=== PATIENT | female | born 1950 | race American Indian/Alaskan Native ===

== ENCOUNTER 2016-08-17 12:25 | Emergency (ER) | payer MEDICARE ==
[2016-08-17 13:12] LABS: Basophils % (Auto) 0.7 % (0.0-1.8); Eosinophils % (Auto) 2.1 % (0.0-4.3); Hematocrit 41.3 % (30.3-42.9); Hemoglobin 13.5 gm/dl (10.1-14.3); Mean Corpuscular HGB Conc 33 % (30-34); Mean Corpuscular Hemoglobin 29 pg (28-32); Mean Corpuscular Volume 89 fl (79-97); Platelet Count 149 K/mm3 (140-440); Red Blood Count 4.62 M/mm3 (3.65-5.03); Red Cell Distribution Width 18.1 % (13.2-15.2); White Blood Count 5.6 K/mm3 (4.5-11.0)
[2016-08-17 13:29] LABS: Anion Gap 20 mmol/L; BUN/Creatinine Ratio 25.71; Blood Urea Nitrogen 18 mg/dL (7-17); Calcium 9.3 mg/dL (8.4-10.2); Carbon Dioxide 25 mmol/L (22-30); Chloride 98.3 mmol/L (98-107); Glucose 120 mg/dL (65-100); Potassium 4.5 mmol/L (3.6-5.0); Sodium 139 mmol/L (137-145)
--- NOTE | 2016-08-17 14:42 | XRay Report ---
CHEST 2 VIEWS INDICATION: Shortness of breath. COMPARISON: 01/05/2016 FINDINGS: PA and lateral chest radiographs demonstrate stable cardiomediastinal silhouette, slight aortic knob calcifications, possible pulmonary arterial hypertension and mild bilateral mid to lower lung zone scarring. Mildly hyperexpanded lungs without pleural effusions or CHF. Stable bones. Lumbar fusion hardware posteriorly barely included. CONCLUSION: COPD without acute chest process or significant interval change, as described. Thank you for the opportunity to participate in this patient's care.
[2016-08-17] MEDS ORDERED: ATROVENT IH ONE (22:10)
[2016-08-17] MEDS ORDERED: PROVENTIL IH ONE (22:10)
[2016-08-17] MEDS ORDERED: TORADOL IV ONE (22:10)
[2016-08-17] MEDS ORDERED: NACL 0.9% 500 ML 500 ML IV ONE (22:10)
--- NOTE | 2016-08-17 22:11 | Emergency Department Report ---
ED General Adult HPI - General Chief complaint: Dyspnea/Respdistress Stated complaint: CHEST TIGHT/SOB/N/V Time Seen by Provider: 08/17/16 21:55 Source: patient, RN notes reviewed Mode of arrival: Wheelchair Limitations: No Limitations - History of Present Illness Initial comments: This is a 65-year-old female, previously unknown to me. Has a past medical history of COPD, hypertension, chronic back pain, narcotic dependency, rheumatoid arthritis. Patient presents to the ER complaining of cough, congestion, wheezing, shortness of breath, mucous production. Reports that she was diagnosed with pneumonia approximately 1 month ago. To me she denies chest pain. She reports her symptoms are qualitatively similar to prior episodes of COPD. There is no posterior lower extremity pain or swelling. No recent trips greater than 4 hours. No recent hospital admissions. Patient also reports that she wants to go to outpatient detox for her narcotic habits. She is not homicidal. She is not suicidal. -: Gradual Severity scale (0 -10): 8 Consistency: intermittent Improves with: rest Worsens with: movement Associated Symptoms: cough, shortness of breath - Related Data Home Medications Medication Instructions Recorded Confirmed Last Taken amLODIPine [Norvasc] 10 mg PO DAILY 01/28/14 01/05/16 1 Day Ago 10 Nebivolol HCl [Bystolic] 10 mg PO QDAY 11/25/15 01/05/16 1 Day Ago 10 oxyCODONE [Roxicodone] 30 mg PO Q6HR PRN 11/25/15 01/05/16 1 Day Ago 30 Meloxicam [Mobic] 10 mg PO DAILY 01/05/16 01/05/16 1 Day Ago 10 buPROPion [Wellbutrin] 100 mg PO BID 01/05/16 01/05/16 1 Day Ago 100 hydrOXYzine PAMOATE [Vistaril] 50 mg PO Q8HR 01/05/16 01/05/16 1 Day Ago 50 Previous Rx's Medication Instructions Recorded Last Taken Type Azithromycin [Zithromax TAB] 500 mg PO QDAY #3 tablet 01/05/16 Unknown Rx Prednisone [predniSONE 10 mg 10 mg PO .TAPER #1 tab.ds.pk 01/05/16 Unknown Rx (6-Day Pack, 21 Tabs)] Albuterol Sulfate [Proair 90 mcg IH Q4HR PRN #2 aer.pow.ba 08/18/16 Unknown Rx Respiclick] Azithromycin [Zithromax TAB] 250 mg PO QDAY #4 tablet 08/18/16 Unknown Rx Benzonatate [Tessalon Perles] 100 mg PO Q8HR PRN #30 capsule 08/18/16 Unknown Rx Ipratropium [place] [Atrovent Hfa] 12.9 gm IH Q4HR #2 hfa.aer.ad 08/18/16 Unknown Rx predniSONE [Deltasone] 40 mg PO QDAY #8 tab 08/18/16 Unknown Rx Allergies Allergy/AdvReac Type Severity Reaction Status Date / Time No Known Allergies Allergy Verified 08/17/16 12:42 ED Review of Systems ROS: Stated complaint: CHEST TIGHT/SOB/N/V Other details as noted in HPI Constitutional: malaise Eyes: denies: vision change Respiratory: shortness of breath, wheezing Cardiovascular: dyspnea on exertion. denies: chest pain Musculoskeletal: back pain, arthralgia, myalgia, other (patient complains of chronic arthralgias, chronic back pain.) Skin: denies: rash, lesions Neurological: denies: headache, weakness, paresthesias Psychiatric: denies: anxiety, depression, homicidal thoughts, suicidal thoughts ED Past Medical Hx - Past Medical History Hx Hypertension: Yes Hx Congestive Heart Failure: Yes Hx Arthritis: Yes (rheumtoid) Hx COPD: Yes Additional medical history: chronic back pain - Surgical History Additional Surgical History: hernia repair and lower back - Social History Smoking Status: Former Smoker Substance Use Type: Prescribed - Medications Home Medications: Home Medications Medication Instructions Recorded Confirmed Last Taken Type amLODIPine [Norvasc] 10 mg PO DAILY 01/28/14 01/05/16 1 Day Ago History 10 Nebivolol HCl [Bystolic] 10 mg PO QDAY 11/25/15 01/05/16 1 Day Ago History 10 oxyCODONE [Roxicodone] 30 mg PO Q6HR PRN 11/25/15 01/05/16 1 Day Ago History 30 Azithromycin [Zithromax TAB] 500 mg PO QDAY #3 tablet 01/05/16 Unknown Rx Meloxicam [Mobic] 10 mg PO DAILY 01/05/16 01/05/16 1 Day Ago History 10 Prednisone [predniSONE 10 mg 10 mg PO .TAPER #1 tab.ds.pk 01/05/16 Unknown Rx (6-Day Pack, 21 Tabs)] buPROPion [Wellbutrin] 100 mg PO BID 01/05/16 01/05/16 1 Day Ago History 100 hydrOXYzine PAMOATE [Vistaril] 50 mg PO Q8HR 01/05/16 01/05/16 1 Day Ago History 50 Albuterol Sulfate [Proair 90 mcg IH Q4HR PRN #2 aer.pow.ba 08/18/16 Unknown Rx Respiclick] Azithromycin [Zithromax TAB] 250 mg PO QDAY #4 tablet 08/18/16 Unknown Rx Benzonatate [Tessalon Perles] 100 mg PO Q8HR PRN #30 capsule 08/18/16 Unknown Rx Ipratropium [place] [Atrovent Hfa] 12.9 gm IH Q4HR #2 hfa.aer.ad 08/18/16 Unknown Rx predniSONE [Deltasone] 40 mg PO QDAY #8 tab 08/18/16 Unknown Rx ED Physical Exam - General Limitations: No Limitations General appearance: alert, in no apparent distress - Head Head exam: Present: atraumatic, normocephalic - Eye Eye exam: Present: normal appearance, EOMI. Absent: nystagmus - ENT ENT exam: Present: normal exam, normal orophraynx, mucous membranes moist, normal external ear exam - Neck Neck exam: Present: normal inspection, full ROM. Absent: tenderness, meningismus - Respiratory Respiratory exam: Present: wheezes, rales - Cardiovascular Cardiovascular Exam: Present: regular rate, normal rhythm, normal heart sounds. Absent: bradycardia, tachycardia, irregular rhythm, systolic murmur, diastolic murmur, rubs, gallop - GI/Abdominal GI/Abdominal exam: Present: soft, normal bowel sounds. Absent: distended, tenderness, guarding, rebound, rigid, pulsatile mass - Extremities Exam Extremities exam: Present: normal inspection, full ROM, normal capillary refill. Absent: tenderness, pedal edema, joint swelling, calf tenderness - Back Exam Back exam: Present: normal inspection, full ROM, paraspinal tenderness. Absent : tenderness, CVA tenderness (R), CVA tenderness (L), muscle spasm - Neurological Exam Neurological exam: Present: alert, oriented X3, normal gait, other (Extraocular movements intact. Tongue midline. No facial droop. Facial sensation intact to light touch in the V1, V2, V3 distribution bilaterally. 5 and 5 strength in 4 extremities.. Sensation is intact to light touch in 4 extremities.). Absent : motor sensory deficit - Psychiatric Psychiatric exam: Present: normal affect, normal mood - Skin Skin exam: Present: warm, dry, intact, normal color. Absent: rash ED Course Vital Signs 08/17/16 08/17/16 08/17/16 12:35 20:05 23:31 Temperature 98.4 F 98.4 F Pulse Rate 85 72 Pulse Rate [ Bilateral Throughout] Respiratory 20 18 18 Rate Respiratory Rate [Bilateral Throughout] Blood Pressure 144/84 154/80 O2 Sat by Pulse 100 96 Oximetry 08/17/16 23:58 Temperature Pulse Rate Pulse Rate [ 80 Bilateral Throughout] Respiratory Rate Respiratory 20 Rate [Bilateral Throughout] Blood Pressure O2 Sat by Pulse Oximetry - Reevaluation(s) Reevaluation #1: 08/18/16 00:07 Differential diagnosis: COPD exacerbation, bronchitis, pneumonia, chronic back pain, narcotic dependence Assessment and plan: 65-year-old female with probable bronchitis and COPD exacerbation which I think is mild. The patient is able to ambulate without significant desaturation. To me she denies chest pain. No pulmonary embolus or DVT risk factors, low risk by well's criteria. Symptoms have been present for the past few days. Therefore, as per the [employer] clinical policy, myocardial infarction may be excluded with 1 set of cardiac enzymes if symptoms have been present for greater than 8 hours. Patient did endorse pelvic pain and lower back pain after mechanical fall, however she is able to ambulate with a steady gait. Plain films do not demonstrate fracture or dislocation. Towards the end of her assessment, patient did request to go to [facility] which were narcotic detox. She is not homicidal. She is not suicidal. She does not require 1013 at this time. She will be discharged with albuterol, Atrovent, steroids, instructions to closely follow up with outpatient primary care doctor. The patient is able to ambulate on supplemental oxygen which she takes chronically, without significant clinical decompensation. Reevaluation #2: 08/18/16 00:35 The patient was able to ambulate with her typical quantity of supplemental oxygen without significant difficulty. Pulse ox stayed normal 90s, consistent with chronic COPD. She does not appear to be significantly distressed. ED Medical Decision Making - Lab Data Result diagrams: 08/17/16 12:57 08/17/16 12:57 Vital Signs 08/17/16 08/17/16 08/17/16 12:35 20:05 23:31 Temperature 98.4 F 98.4 F Pulse Rate 85 72 Pulse Rate [ Bilateral Throughout] Respiratory 20 18 18 Rate Respiratory Rate [Bilateral Throughout] Blood Pressure 144/84 154/80 O2 Sat by Pulse 100 96 Oximetry 08/17/16 23:58 Temperature Pulse Rate Pulse Rate [ 80 Bilateral Throughout] Respiratory Rate Respiratory 20 Rate [Bilateral Throughout] Blood Pressure O2 Sat by Pulse Oximetry Lab Results 08/17/16 08/17/16 Range/Units 12:57 12:57 WBC 5.6 (4.5-11.0) K/mm3 RBC 4.62 (3.65-5.03) M/mm3 Hgb 13.5 (10.1-14.3) gm/dl Hct 41.3 (30.3-42.9) % MCV 89 (79-97) fl MCH 29 (28-32) pg MCHC 33 (30-34) % RDW 18.1 H (13.2-15.2) % Plt Count 149 (140-440) K/mm3 Lymph % (Auto) 25.2 (13.4-35.0) % [place] % (Auto) 5.3 (0.0-7.3) % Eos % (Auto) 2.1 (0.0-4.3) % Baso % (Auto) 0.7 (0.0-1.8) % Lymph # 1.4 (1.2-5.4) K/mm3 [place] # 0.3 (0.0-0.8) K/mm3 Eos # 0.1 (0.0-0.4) K/mm3 Baso # 0.0 (0.0-0.1) K/mm3 Seg Neutrophils % 66.7 (40.0-70.0) % Seg Neutrophils # 3.7 (1.8-7.7) K/mm3 Sodium 139 (137-145) mmol/L Potassium 4.5 (3.6-5.0) mmol/L Chloride 98.3 (98-107) mmol/L Carbon Dioxide 25 (22-30) mmol/L Anion Gap 20 mmol/L BUN 18 H (7-17) mg/dL Creatinine 0.7 (0.7-1.2) mg/dL Estimated GFR > 60 ml/min BUN/Creatinine Ratio 25.71 % Glucose 120 H (65-100) mg/dL Calcium 9.3 (8.4-10.2) mg/dL Troponin T < 0.010 (0.00-0.029) ng/mL - EKG Data 08/18/16 00:10 Normal sinus, 78 bpm, amylase axis, normal intervals, low voltage EKG, not morphologically consistent with STEMI, appears unchanged when compared to prior EKG from 11/30/2012. - Radiology Data Radiology results: report reviewed, image reviewed X-ray chest negative for acute disease Critical care attestation.: If time is entered above; I have spent that time in minutes in the direct care of this critically ill patient, excluding procedure time. ED Disposition Clinical Impression: COPD exacerbation Disposition: DISCHARGED TO HOME OR SELFCARE Is pt being admited?: No Does the pt Need Aspirin: No Condition: Stable Instructions: Chronic Obstructive Pulmonary Disease (ED) Additional Instructions: The medication as directed. Take the breathing treatments as directed every 4 hours for the next 5 days. Take antibiotics as directed. Follow up with her primary care doctor for a repeat checkup within the next 2 days. Return to the ER right away with new pain, worsened pain, migration of pain, fevers or chills , intractable nausea or vomiting, inability to tolerate liquid feeds. At this point in time, I do not detect any immediate medical contraindication to detox therapy as an outpatient if you desire. Prescriptions: Albuterol Sulfate [Proair Respiclick] 90 mcg IH Q4HR PRN #2 aer.pow.ba PRN Reason: Wheezing Azithromycin [Zithromax TAB] 250 mg PO QDAY #4 tablet Benzonatate [Tessalon Perles] 100 mg PO Q8HR PRN #30 capsule PRN Reason: Cough Ipratropium [place] [Atrovent Hfa] 12.9 gm IH Q4HR #2 hfa.aer.ad predniSONE [Deltasone] 40 mg PO QDAY #8 tab Referrals: LUCIE ORDAZ MD [Primary Care Provider] - 3-5 Days
[2016-08-18] MEDS ORDERED: ZITHROMAX PO ONE (00:11)
[2016-08-18 01:30] VITALS: BP 161/90
--- NOTE | 2016-08-18 09:32 | XRay Report ---
AP PELVIS: HISTORY: Hip pain. FINDINGS: Bone mineralization is normal. There is no evidence for fracture, dislocation or bone lesion. No significant degenerative changes at the hips. There has been previous lumbosacral fusion down to the level of S1 which is partially imaged. There is no obvious abnormality. Mild osteoarthritic changes are noted at the SI joints. IMPRESSION: Surgical changes in the lumbar spine. Degenerative changes in the SI joints.
== END 2016-08-18 02:53 | disposition home or self-care (01) ==
LOC: ED 12:25
DX: J44.1 Chronic obstructive pulmonary disease with (acute) exacerbation (principal); I10 Essential (primary) hypertension; I50.9 Heart failure, unspecified; M19.90 Unspecified osteoarthritis, unspecified site; G89.29 Other chronic pain; Z87.891 Personal history of nicotine dependence
CPT/HCPCS: 36415; 71020; 72170; 80048; 84484; 85025; 93005; 93010; 94640; 96361; 96374; 96375; 99284; J1885; J2930; J7040

== ENCOUNTER 2017-11-22 16:26 | Emergency (ER) | payer MEDICARE ==
[2017-11-22 17:50] LABS: Basophils % (Auto) 0.7 % (0.0-1.8); Eosinophils # (Auto) 0.1 K/mm3 (0.0-0.4); Eosinophils % (Auto) 2.8 % (0.0-4.3); Hematocrit 38.7 % (30.3-42.9); Hemoglobin 12.2 gm/dl (10.1-14.3); Lymphocytes # (Auto) 1.2 K/mm3 (1.2-5.4); Lymphocytes % (Auto) 23.3 % (13.4-35.0); Mean Corpuscular HGB Conc 32 % (30-34); Mean Corpuscular Hemoglobin 28 pg (28-32); Mean Corpuscular Volume 90 fl (79-97); Monocytes # (Auto) 0.4 K/mm3 (0.0-0.8); Monocytes % (Auto) 6.8 % (0.0-7.3); Platelet Count 178 K/mm3 (140-440); Red Cell Distribution Width 15.7 % (13.2-15.2)
[2017-11-22 18:12] LABS: BUN/Creatinine Ratio 16; Blood Urea Nitrogen 11 mg/dL (7-17); Calcium 9.3 mg/dL (8.4-10.2); Hemolysis Index 33
--- NOTE | 2017-11-22 18:22 | XRay Report ---
FINAL REPORT PROCEDURE: Chest. TECHNIQUE: Portable AP view. HISTORY: Shortness of breath. COMPARISON: No prior studies are available for comparison. FINDINGS: The heart size is normal. There is mild tortuosity and calcification in the thoracic aorta. The lungs are clear and well expanded. There are no pleural effusions. The soft tissues are unremarkable. There is mild osteoarthritis involving both shoulder joints. IMPRESSION: No evidence of acute disease.
--- NOTE | 2017-11-22 19:42 | Emergency Department Report ---
ED Shortness of Breath HPI - General Chief Complaint: Dyspnea/Respdistress Stated Complaint: JOLENE/PNEUMONIA Time Seen by Provider: 11/22/17 17:43 Source: patient, EMS Mode of arrival: Stretcher Limitations: No Limitations - History of Present Illness Initial Comments: Decision 67-year-old female who states she's had difficulty in breathing for approximately 6 days. Patient was seen at [facility] on and diagnosed with pneumonia and given a Z-Ken. Patient states she does not feel much better. She is continued to have a cough and congestion. Her cough is wet sounding but nonproductive. Patient states she's had no fever nausea vomiting abdominal pain this time. Patient states she took the Z-Ken is prescribed. No other medicines were given for the patient. Patient does have a history of COPD and is on 2 L of oxygen at baseline. MD Complaint: shortness of breath, cough - Related Data Home Medications Medication Instructions Recorded Confirmed Last Taken amLODIPine [Norvasc] 10 mg PO DAILY 01/28/14 11/27/16 1 Day Ago ~01/04/16 10 Nebivolol HCl [Bystolic] 15 mg PO QDAY 11/25/15 11/27/16 1 Day Ago ~01/04/16 10 ALBUTEROL Inhaler [ProAir HFA 2 puff PO PRN 11/27/16 11/27/16 Unknown Inhaler] Buprenorphine HCl/Naloxone HCl 1 tab PO QDAY 11/27/16 11/27/16 Unknown [Zubsolv 1.4-0.36 mg Tablet Sl] LORazepam [Ativan] 1 mg PO TID 11/27/16 11/27/16 Unknown Quetiapine Fumarate [Seroquel] 100 mg PO QHS 11/27/16 11/27/16 Unknown diphenhydrAMINE [Benadryl CAP] 50 mg PO QHS PRN 11/27/16 11/27/16 Unknown Previous Rx's Medication Instructions Recorded Last Taken Type Aspirin EC [Aspirin Enteric Coated 81 mg PO QDAY #30 tablet 11/30/16 Unknown Rx TAB] AtorvaSTATin [Lipitor] 40 mg PO QHS #30 tablet 11/30/16 Unknown Rx Budesoni/Formoterol 80-4.5(Nf) 2 puff IH BID 30 Days inha 11/30/16 Unknown Rx [Symbicort 80-4.5 (Nf)] Metoprolol Xl [Metoprolol 100 mg PO QDAY #30 tablet 12/03/16 Unknown Rx SUCCINATE ER TAB] Ondansetron [Zofran TAB] 4 mg PO Q8HR PRN #30 tablet 12/03/16 Unknown Rx amLODIPine [Norvasc] 10 mg PO DAILY #30 tablet 12/03/16 Unknown Rx predniSONE [Deltasone] 50 mg PO QDAY #1 tab 12/03/16 Unknown Rx ALBUTEROL Inhaler [ProAir HFA 2 puff IH QID PRN #1 inhalation 11/22/17 Unknown Rx Inhaler] Doxycycline [Vibramycin CAP] 100 mg PO Q12HR #14 capsule 11/22/17 Unknown Rx HYDROcodone/APAP 5-325 [[place] 1 each PO Q4HR PRN #12 tablet 11/22/17 Unknown Rx 5/325] predniSONE [Deltasone] 20 mg PO QDAY #5 tab 11/22/17 Unknown Rx Allergies Allergy/AdvReac Type Severity Reaction Status Date / Time No Known Allergies Allergy Verified 08/17/16 12:42 ED Review of Systems ROS: Stated complaint: JOLENE/PNEUMONIA Other details as noted in HPI Comment: All other systems reviewed and negative ED Past Medical Hx - Past Medical History Hx Hypertension: Yes Hx Congestive Heart Failure: Yes Hx Arthritis: Yes (rheumatoid) Hx COPD: Yes Additional medical history: chronic back pain - Surgical History Additional Surgical History: hernia repair and lower back - Social History Smoking Status: Former Smoker - Medications Home Medications: Home Medications Medication Instructions Recorded Confirmed Last Taken Type amLODIPine [Norvasc] 10 mg PO DAILY 01/28/14 11/27/16 1 Day Ago History ~01/04/16 10 Nebivolol HCl [Bystolic] 15 mg PO QDAY 11/25/15 11/27/16 1 Day Ago History ~01/04/16 10 ALBUTEROL Inhaler [ProAir HFA 2 puff PO PRN 11/27/16 11/27/16 Unknown History Inhaler] Buprenorphine HCl/Naloxone HCl 1 tab PO QDAY 11/27/16 11/27/16 Unknown History [Zubsolv 1.4-0.36 mg Tablet Sl] LORazepam [Ativan] 1 mg PO TID 11/27/16 11/27/16 Unknown History Quetiapine Fumarate [Seroquel] 100 mg PO QHS 11/27/16 11/27/16 Unknown History diphenhydrAMINE [Benadryl CAP] 50 mg PO QHS PRN 11/27/16 11/27/16 Unknown History Aspirin EC [Aspirin Enteric Coated 81 mg PO QDAY #30 tablet 11/30/16 Unknown Rx TAB] AtorvaSTATin [Lipitor] 40 mg PO QHS #30 tablet 11/30/16 Unknown Rx Budesoni/Formoterol 80-4.5(Nf) 2 puff IH BID 30 Days inha 11/30/16 Unknown Rx [Symbicort 80-4.5 (Nf)] Metoprolol Xl [Metoprolol 100 mg PO QDAY #30 tablet 12/03/16 Unknown Rx SUCCINATE ER TAB] Ondansetron [Zofran TAB] 4 mg PO Q8HR PRN #30 tablet 12/03/16 Unknown Rx amLODIPine [Norvasc] 10 mg PO DAILY #30 tablet 12/03/16 Unknown Rx predniSONE [Deltasone] 50 mg PO QDAY #1 tab 12/03/16 Unknown Rx ALBUTEROL Inhaler [ProAir HFA 2 puff IH QID PRN #1 inhalation 11/22/17 Unknown Rx Inhaler] Doxycycline [Vibramycin CAP] 100 mg PO Q12HR #14 capsule 11/22/17 Unknown Rx HYDROcodone/APAP 5-325 [[place] 1 each PO Q4HR PRN #12 tablet 11/22/17 Unknown Rx 5/325] predniSONE [Deltasone] 20 mg PO QDAY #5 tab 11/22/17 Unknown Rx ED Physical Exam - General Limitations: No Limitations General appearance: alert, in no apparent distress - Head Head exam: Present: atraumatic, normocephalic - Eye Eye exam: Present: normal appearance - ENT ENT exam: Present: mucous membranes moist - Neck Neck exam: Present: normal inspection - Respiratory Respiratory exam: Present: normal lung sounds bilaterally. Absent: respiratory distress, wheezes, rales, rhonchi, stridor - Cardiovascular Cardiovascular Exam: Present: regular rate, normal rhythm. Absent: systolic murmur, diastolic murmur, rubs, gallop - GI/Abdominal GI/Abdominal exam: Present: soft, normal bowel sounds. Absent: distended, tenderness, guarding, rebound - Extremities Exam Extremities exam: Present: normal inspection - Back Exam Back exam: Present: normal inspection - Neurological Exam Neurological exam: Present: alert, oriented X3 - Psychiatric Psychiatric exam: Present: normal affect, normal mood - Skin Skin exam: Present: warm, dry, intact, normal color. Absent: rash ED Course Vital Signs 11/22/17 11/22/17 16:54 18:10 Temperature 98.5 F Pulse Rate 92 H Respiratory 20 Rate Blood Pressure 130/89 O2 Sat by Pulse 95 95 Oximetry ED Medical Decision Making - Lab Data Result diagrams: 11/22/17 17:31 11/22/17 17:31 - EKG Data -: EKG Interpreted by Me - EKG Data Interpretation: other (EKG shows sinus rhythm at a rate of 83 and normal axis normal and will occasional PVCs but no ST segment elevation or depression. Interpretation at 1715) - Radiology Data Chest x-ray shows no acute process. - Medical Decision Making Despite not feeling well patient's x-ray laboratory studies all within normal limits. Patient is 99% on 2 L. Patient states that occasionally she has wear 3 L at home at baseline. Patient is asking for admission however at this time patient does not meet criteria for admission. Patient be discharged home. I will extend the patient's antibiotic course additional 5 days with Doxy and traced the patient on something for pain and prednisone. Critical care attestation.: If time is entered above; I have spent that time in minutes in the direct care of this critically ill patient, excluding procedure time. ED Disposition Clinical Impression: Acute bronchitis Disposition: DC-01 TO HOME OR SELFCARE Is pt being admited?: No Does the pt Need Aspirin: No Condition: Stable Instructions: Acute Bronchitis (ED) Referrals: LUCIE ORDAZ MD [Primary Care Provider] - 3-5 Days
[2017-11-22 21:56] VITALS: BP 136/82
== END 2017-11-22 21:57 | disposition home or self-care (01) ==
LOC: ED 16:26
DX: J20.9 Acute bronchitis, unspecified (principal); I11.0 Hypertensive heart disease with heart failure; I50.9 Heart failure, unspecified; M19.90 Unspecified osteoarthritis, unspecified site; J44.9 Chronic obstructive pulmonary disease, unspecified; Z87.891 Personal history of nicotine dependence; Z79.82 Long term (current) use of aspirin
CPT/HCPCS: 36415; 71045; 80048; 84484; 85025; 93005; 93010; 99284

== ENCOUNTER 2017-11-24 12:06 | Inpatient (IN) | payer MEDICARE ==
[2017-11-24 13:25] LABS: Basophils % (Auto) 0.3 % (0.0-1.8); Eosinophils # (Auto) 0.1 K/mm3 (0.0-0.4); Hematocrit 40.1 % (30.3-42.9); Hemoglobin 13.6 gm/dl (10.1-14.3); Lymphocytes # (Auto) 0.9 K/mm3 (1.2-5.4); Lymphocytes % (Auto) 14.5 % (13.4-35.0); Mean Corpuscular HGB Conc 34 % (30-34); Mean Corpuscular Hemoglobin 30 pg (28-32); Mean Corpuscular Volume 88 fl (79-97); Monocytes # (Auto) 0.3 K/mm3 (0.0-0.8); Monocytes % (Auto) 4.2 % (0.0-7.3); Platelet Count 183 K/mm3 (140-440); Red Blood Count 4.58 M/mm3 (3.65-5.03); Red Cell Distribution Width 15.5 % (13.2-15.2)
[2017-11-24 13:52] LABS: BUN/Creatinine Ratio 13; Blood Urea Nitrogen 9 mg/dL (7-17); Calcium 9.9 mg/dL (8.4-10.2); Hemolysis Index 7
[2017-11-24] MEDS ORDERED: ATIVAN PO ONE (17:13)
[2017-11-24] MEDS ORDERED: DUONEB *Not for PRN Use IH ONE (18:22)
--- NOTE | 2017-11-24 18:22 | Emergency Department Report ---
ED Shortness of Breath HPI - General Chief Complaint: Psych Stated Complaint: SUICIDAL THOUGHTS/DIFF BREATHING Time Seen by Provider: 11/24/17 16:43 Source: patient, EMS Mode of arrival: Wheelchair Limitations: Physical Limitation - History of Present Illness Initial Comments: 67-year-old female the past medical history of CHF, COPD (2-3 L) , hypertension , anxiety and chronic back pain presents to the hospital complaining of continued shortness of breath and coughing. Patient states she is concerned that she has pneumonia. She finished [facility] last 5 days ago. She presented here on the requesting admission because she didn't feel any better. She was definitely sent home with no signs of pneumonia or respiratory systems are stable. Patient now returns stating that she has continued cough productive of green sputum. The chest pain associated with coughing. Palpitations and anxiety as well as shortness of breath. Patient has been out of her Ativan 1 mg 3 times a day 3 days. She has been on this dose for at least 1 year. When questioned about her living status patient becomes tearful stating that she lives alone at her son checks up on her. She has some concern about her son selling some of her belongings without her permission. Patient states she is now suicidal without plan. Stating she just wants to give up. Reports that she was admitted to a psychiatric hospital for treatment approximately 2 years ago - Related Data Home Medications Medication Instructions Recorded Confirmed Last Taken amLODIPine [Norvasc] 10 mg PO DAILY 01/28/14 11/27/16 1 Day Ago ~01/04/16 10 Nebivolol HCl [Bystolic] 15 mg PO QDAY 11/25/15 11/27/16 1 Day Ago ~01/04/16 10 ALBUTEROL Inhaler [ProAir HFA 2 puff PO PRN 11/27/16 11/27/16 Unknown Inhaler] Buprenorphine HCl/Naloxone HCl 1 tab PO QDAY 11/27/16 11/27/16 Unknown [Zubsolv 1.4-0.36 mg Tablet Sl] LORazepam [Ativan] 1 mg PO TID 11/27/16 11/27/16 Unknown Quetiapine Fumarate [Seroquel] 100 mg PO QHS 11/27/16 11/27/16 Unknown diphenhydrAMINE [Benadryl CAP] 50 mg PO QHS PRN 11/27/16 11/27/16 Unknown Previous Rx's Medication Instructions Recorded Last Taken Type Aspirin EC [Aspirin Enteric Coated 81 mg PO QDAY #30 tablet 11/30/16 Unknown Rx TAB] AtorvaSTATin [Lipitor] 40 mg PO QHS #30 tablet 11/30/16 Unknown Rx Budesoni/Formoterol 80-4.5(Nf) 2 puff IH BID 30 Days inha 11/30/16 Unknown Rx [Symbicort 80-4.5 (Nf)] Metoprolol Xl [Metoprolol 100 mg PO QDAY #30 tablet 12/03/16 Unknown Rx SUCCINATE ER TAB] Ondansetron [Zofran TAB] 4 mg PO Q8HR PRN #30 tablet 12/03/16 Unknown Rx amLODIPine [Norvasc] 10 mg PO DAILY #30 tablet 12/03/16 Unknown Rx predniSONE [Deltasone] 50 mg PO QDAY #1 tab 12/03/16 Unknown Rx ALBUTEROL Inhaler [ProAir HFA 2 puff IH QID PRN #1 inhalation 11/22/17 Unknown Rx Inhaler] Doxycycline [Vibramycin CAP] 100 mg PO Q12HR #14 capsule 11/22/17 Unknown Rx HYDROcodone/APAP 5-325 [[place] 1 each PO Q4HR PRN #12 tablet 11/22/17 Unknown Rx 5/325] predniSONE [Deltasone] 20 mg PO QDAY #5 tab 11/22/17 Unknown Rx Allergies Allergy/AdvReac Type Severity Reaction Status Date / Time No Known Allergies Allergy Verified 08/17/16 12:42 ED Review of Systems ROS: Stated complaint: SUICIDAL THOUGHTS/DIFF BREATHING Other details as noted in HPI Comment: All other systems reviewed and negative ED Past Medical Hx - Past Medical History Previous Medical History?: Yes Hx Hypertension: Yes Hx Congestive Heart Failure: Yes Hx Arthritis: Yes (rheumatoid) Hx COPD: Yes Additional medical history: chronic back pain - Surgical History Past Surgical History?: Yes Additional Surgical History: hernia repair and lower back - Social History Smoking Status: Former Smoker Substance Use Type: Prescribed - Medications Home Medications: Home Medications Medication Instructions Recorded Confirmed Last Taken Type amLODIPine [Norvasc] 10 mg PO DAILY 01/28/14 11/27/16 1 Day Ago History ~01/04/16 10 Nebivolol HCl [Bystolic] 15 mg PO QDAY 11/25/15 11/27/16 1 Day Ago History ~01/04/16 10 ALBUTEROL Inhaler [ProAir HFA 2 puff PO PRN 11/27/16 11/27/16 Unknown History Inhaler] Buprenorphine HCl/Naloxone HCl 1 tab PO QDAY 11/27/16 11/27/16 Unknown History [Zubsolv 1.4-0.36 mg Tablet Sl] LORazepam [Ativan] 1 mg PO TID 11/27/16 11/27/16 Unknown History Quetiapine Fumarate [Seroquel] 100 mg PO QHS 11/27/16 11/27/16 Unknown History diphenhydrAMINE [Benadryl CAP] 50 mg PO QHS PRN 11/27/16 11/27/16 Unknown History Aspirin EC [Aspirin Enteric Coated 81 mg PO QDAY #30 tablet 11/30/16 Unknown Rx TAB] AtorvaSTATin [Lipitor] 40 mg PO QHS #30 tablet 11/30/16 Unknown Rx Budesoni/Formoterol 80-4.5(Nf) 2 puff IH BID 30 Days inha 11/30/16 Unknown Rx [Symbicort 80-4.5 (Nf)] Metoprolol Xl [Metoprolol 100 mg PO QDAY #30 tablet 12/03/16 Unknown Rx SUCCINATE ER TAB] Ondansetron [Zofran TAB] 4 mg PO Q8HR PRN #30 tablet 12/03/16 Unknown Rx amLODIPine [Norvasc] 10 mg PO DAILY #30 tablet 12/03/16 Unknown Rx predniSONE [Deltasone] 50 mg PO QDAY #1 tab 12/03/16 Unknown Rx ALBUTEROL Inhaler [ProAir HFA 2 puff IH QID PRN #1 inhalation 11/22/17 Unknown Rx Inhaler] Doxycycline [Vibramycin CAP] 100 mg PO Q12HR #14 capsule 11/22/17 Unknown Rx HYDROcodone/APAP 5-325 [[place] 1 each PO Q4HR PRN #12 tablet 11/22/17 Unknown Rx 5/325] predniSONE [Deltasone] 20 mg PO QDAY #5 tab 11/22/17 Unknown Rx ED Physical Exam - General Limitations: Physical Limitation - Other Other exam information: General: No limitations, patient is alert in no acute distress Head exam: Atraumatic, normocephalic Eyes exam: Normal appearance ENT: Moist mucous membrane, normal oropharynx Neck exam: Normal inspection, full range of motion, no meningismus nontender Respiratory exam: Mild wheezing Cardiovascular: Normal rate and rhythm, normal heart sounds Abdomen: Soft, nondistended, and nontender, with normal bowel sounds, no rebound, or guarding Extremity: Full range of motion normal inspection no deformity Back: Normal Inspection, full range of motion, no tenderness Neurologic: Alert, oriented x3, cranial nerves intact, no motor or sensory deficit Psychiatric: tearful, anxious Skin: Warm, dry, intact ED Course Vital Signs 11/24/17 11/24/17 11/24/17 12:49 18:06 18:12 Temperature 98.7 F 98 F Pulse Rate 100 H 100 H Respiratory 18 16 18 Rate Blood Pressure 126/91 Blood Pressure 149/94 [Right] O2 Sat by Pulse 96 97 98 Oximetry ED Medical Decision Making - Lab Data Result diagrams: 11/24/17 13:10 11/24/17 13:10 Lab Results 11/24/17 11/24/17 11/24/17 Range/Units 13:10 13:10 13:10 WBC (4.5-11.0) K/mm3 RBC (3.65-5.03) M/mm3 Hgb (10.1-14.3) gm/dl Hct (30.3-42.9) % MCV (79-97) fl MCH (28-32) pg MCHC (30-34) % RDW (13.2-15.2) % Plt Count (140-440) K/mm3 Lymph % (Auto) (13.4-35.0) % [place] % (Auto) (0.0-7.3) % Eos % (Auto) (0.0-4.3) % Baso % (Auto) (0.0-1.8) % Lymph # (1.2-5.4) K/mm3 [place] # (0.0-0.8) K/mm3 Eos # (0.0-0.4) K/mm3 Baso # (0.0-0.1) K/mm3 Seg Neutrophils % (40.0-70.0) % Seg Neutrophils # (1.8-7.7) K/mm3 Sodium 146 H (137-145) mmol/L Potassium 3.6 (3.6-5.0) mmol/L Chloride 100.4 (98-107) mmol/L Carbon Dioxide 30 (22-30) mmol/L Anion Gap 19 mmol/L BUN 9 (7-17) mg/dL Creatinine 0.7 (0.7-1.2) mg/dL Estimated GFR > 60 ml/min BUN/Creatinine Ratio 13 % Glucose 127 H (65-100) mg/dL Calcium 9.9 (8.4-10.2) mg/dL Urine Color (Yellow) Urine Turbidity (Clear) Urine pH (5.0-7.0) Ur Specific [place] (1.003-1.030) Urine Protein (Negative) mg/dL Urine Glucose (UA) (Negative) mg/dL Urine Ketones (Negative) mg/dL Urine Blood (Negative) Urine Nitrite (Negative) Ur Reducing Substances Urine Bilirubin (Negative) Urine Ictotest Urine Urobilinogen (<2.0) mg/dL Ur Leukocyte Esterase (Negative) Urine WBC (Auto) (0.0-6.0) /HPF Urine RBC (Auto) (0.0-6.0) /HPF U Epithel Cells (Auto) (0-13.0) /HPF Urine Bacteria (Auto) (Negative) /HPF Hyaline Casts /LPF Urine Mucus /HPF Salicylates 1.1 L (2.8-20.0) mg/dL Urine Opiates Screen Urine Methadone Screen Acetaminophen < 5.0 L (10.0-30.0) ug/mL Ur Barbiturates Screen Ur Phencyclidine Scrn Ur Amphetamines Screen U Benzodiazepines Scrn Urine Cocaine Screen U Marijuana (THC) Screen Drugs of Abuse Note Plasma/Serum Alcohol (0-0.07) % 11/24/17 11/24/17 11/24/17 Range/Units 13:10 13:10 18:52 WBC 6.3 (4.5-11.0) K/mm3 RBC 4.58 (3.65-5.03) M/mm3 Hgb 13.6 (10.1-14.3) gm/dl Hct 40.1 (30.3-42.9) % MCV 88 (79-97) fl MCH 30 (28-32) pg MCHC 34 (30-34) % RDW 15.5 H (13.2-15.2) % Plt Count 183 (140-440) K/mm3 Lymph % (Auto) 14.5 (13.4-35.0) % [place] % (Auto) 4.2 (0.0-7.3) % Eos % (Auto) 1.0 (0.0-4.3) % Baso % (Auto) 0.3 (0.0-1.8) % Lymph # 0.9 L (1.2-5.4) K/mm3 [place] # 0.3 (0.0-0.8) K/mm3 Eos # 0.1 (0.0-0.4) K/mm3 Baso # 0.0 (0.0-0.1) K/mm3 Seg Neutrophils % 80.0 H (40.0-70.0) % Seg Neutrophils # 5.0 (1.8-7.7) K/mm3 Sodium (137-145) mmol/L Potassium (3.6-5.0) mmol/L Chloride (98-107) mmol/L Carbon Dioxide (22-30) mmol/L Anion Gap mmol/L BUN (7-17) mg/dL Creatinine (0.7-1.2) mg/dL Estimated GFR ml/min BUN/Creatinine Ratio % Glucose (65-100) mg/dL Calcium (8.4-10.2) mg/dL Urine Color Yellow (Yellow) Urine Turbidity Clear (Clear) Urine pH 6.0 (5.0-7.0) Ur Specific [place] 1.035 H (1.003-1.030) Urine Protein 100 mg/dl (Negative) mg/dL Urine Glucose (UA) Negative (Negative) mg/dL Urine Ketones Trace (Negative) mg/dL Urine Blood Negative (Negative) Urine Nitrite Negative (Negative) Ur Reducing Substances Not Reportable Urine Bilirubin Negative (Negative) Urine Ictotest Not Reportable Urine Urobilinogen < 2.0 (<2.0) mg/dL Ur Leukocyte Esterase Small (Negative) Urine WBC (Auto) 3.0 (0.0-6.0) /HPF Urine RBC (Auto) 2.0 (0.0-6.0) /HPF U Epithel Cells (Auto) 1.0 (0-13.0) /HPF Urine Bacteria (Auto) 1+ (Negative) /HPF Hyaline Casts 36 /LPF Urine Mucus Few /HPF Salicylates (2.8-20.0) mg/dL Urine Opiates Screen Urine Methadone Screen Acetaminophen (10.0-30.0) ug/mL Ur Barbiturates Screen Ur Phencyclidine Scrn Ur Amphetamines Screen U Benzodiazepines Scrn Urine Cocaine Screen U Marijuana (THC) Screen Drugs of Abuse Note Plasma/Serum Alcohol < 0.01 (0-0.07) % 11/24/17 Range/Units 18:52 WBC (4.5-11.0) K/mm3 RBC (3.65-5.03) M/mm3 Hgb (10.1-14.3) gm/dl Hct (30.3-42.9) % MCV (79-97) fl MCH (28-32) pg MCHC (30-34) % RDW (13.2-15.2) % Plt Count (140-440) K/mm3 Lymph % (Auto) (13.4-35.0) % [place] % (Auto) (0.0-7.3) % Eos % (Auto) (0.0-4.3) % Baso % (Auto) (0.0-1.8) % Lymph # (1.2-5.4) K/mm3 [place] # (0.0-0.8) K/mm3 Eos # (0.0-0.4) K/mm3 Baso # (0.0-0.1) K/mm3 Seg Neutrophils % (40.0-70.0) % Seg Neutrophils # (1.8-7.7) K/mm3 Sodium (137-145) mmol/L Potassium (3.6-5.0) mmol/L Chloride (98-107) mmol/L Carbon Dioxide (22-30) mmol/L Anion Gap mmol/L BUN (7-17) mg/dL Creatinine (0.7-1.2) mg/dL Estimated GFR ml/min BUN/Creatinine Ratio % Glucose (65-100) mg/dL Calcium (8.4-10.2) mg/dL Urine Color (Yellow) Urine Turbidity (Clear) Urine pH (5.0-7.0) Ur Specific [place] (1.003-1.030) Urine Protein (Negative) mg/dL Urine Glucose (UA) (Negative) mg/dL Urine Ketones (Negative) mg/dL Urine Blood (Negative) Urine Nitrite (Negative) Ur Reducing Substances Urine Bilirubin (Negative) Urine Ictotest Urine Urobilinogen (<2.0) mg/dL Ur Leukocyte Esterase (Negative) Urine WBC (Auto) (0.0-6.0) /HPF Urine RBC (Auto) (0.0-6.0) /HPF U Epithel Cells (Auto) (0-13.0) /HPF Urine Bacteria (Auto) (Negative) /HPF Hyaline Casts /LPF Urine Mucus /HPF Salicylates (2.8-20.0) mg/dL Urine Opiates Screen Presumptive negative Urine Methadone Screen Presumptive negative Acetaminophen (10.0-30.0) ug/mL Ur Barbiturates Screen Presumptive negative Ur Phencyclidine Scrn Presumptive negative Ur Amphetamines Screen Presumptive negative U Benzodiazepines Scrn Presumptive negative Urine Cocaine Screen Presumptive negative U Marijuana (THC) Screen Presumptive negative Drugs of Abuse Note Disclamer Plasma/Serum Alcohol (0-0.07) % - Radiology Data Radiology results: report reviewed CXR IMPRESSION: Emphysema. Mild bilateral subsegmental atelectasis - Differential Diagnosis copD, pneumonia, anxiety Critical Care Time: No Critical care attestation.: If time is entered above; I have spent that time in minutes in the direct care of this critically ill patient, excluding procedure time. ED Disposition Clinical Impression: COPD exacerbation, Anxiety, Benzodiazepine dependence Disposition: 09 OP ADMIT IP TO THIS HOSP Is pt being admited?: Yes Condition: Stable Time of Disposition: 18:21
[2017-11-24] MEDS ORDERED: TYLENOL PO PRN (18:23)
[2017-11-24] MEDS ORDERED: SODIUM CHLORIDE FLUSH SYRINGE 10 ML IV PRN (18:23)
[2017-11-24] MEDS ORDERED: PROVENTIL IH PRN (18:23)
--- NOTE | 2017-11-24 18:23 | History and Physical Report ---
History of Present Illness Chief complaint: I dont feel good History of present illness: 67 YO Female with Diastolic CHF, COPD on 2 L Home oxygen, Chronic Respiratory Failure, Anxiety, HTN, Chronic Pain presents to ED for evaluation. Pt states that she has experienced shortness of breath, as well as coughing with increased production of green sputum over the past week, with worsening symptoms over the past 2 days. Pt was treated with outpatient antibiotic therapy without improvement in symptoms. Pt also acknowledges chest wall pain secondary to coughing, as well as anxiety, feeling helpless/hopeless, with depressed mood, and feeling like she wants to give up on life. Pt acknowledges suicidal ideation, but denies plan. Pt seen and evaluated in ED and found to have COPD exacerbation, as well as Diastolic CHF. Pt admitted to medical floor. Psychiatry consulted in ED. Past History Past Medical History: arthritis, COPD, heart failure, hypertension Past Surgical History: hernia repair, Other (Back surgery) Social history: single Medications and Allergies Allergies Allergy/AdvReac Type Severity Reaction Status Date / Time No Known Allergies Allergy Verified 08/17/16 12:42 Home Medications Medication Instructions Recorded Confirmed Last Taken Type amLODIPine [Norvasc] 10 mg PO DAILY 01/28/14 11/27/16 1 Day Ago History ~01/04/16 10 Nebivolol HCl [Bystolic] 15 mg PO QDAY 11/25/15 11/27/16 1 Day Ago History ~01/04/16 10 ALBUTEROL Inhaler [ProAir HFA 2 puff PO PRN 11/27/16 11/27/16 Unknown History Inhaler] Buprenorphine HCl/Naloxone HCl 1 tab PO QDAY 11/27/16 11/27/16 Unknown History [Zubsolv 1.4-0.36 mg Tablet Sl] LORazepam [Ativan] 1 mg PO TID 11/27/16 11/27/16 Unknown History Quetiapine Fumarate [Seroquel] 100 mg PO QHS 11/27/16 11/27/16 Unknown History diphenhydrAMINE [Benadryl CAP] 50 mg PO QHS PRN 11/27/16 11/27/16 Unknown History Aspirin EC [Aspirin Enteric Coated 81 mg PO QDAY #30 tablet 11/30/16 Unknown Rx TAB] AtorvaSTATin [Lipitor] 40 mg PO QHS #30 tablet 11/30/16 Unknown Rx Budesoni/Formoterol 80-4.5(Nf) 2 puff IH BID 30 Days inha 11/30/16 Unknown Rx [Symbicort 80-4.5 (Nf)] Metoprolol Xl [Metoprolol 100 mg PO QDAY #30 tablet 12/03/16 Unknown Rx SUCCINATE ER TAB] Ondansetron [Zofran TAB] 4 mg PO Q8HR PRN #30 tablet 12/03/16 Unknown Rx amLODIPine [Norvasc] 10 mg PO DAILY #30 tablet 12/03/16 Unknown Rx predniSONE [Deltasone] 50 mg PO QDAY #1 tab 12/03/16 Unknown Rx ALBUTEROL Inhaler [ProAir HFA 2 puff IH QID PRN #1 inhalation 11/22/17 Unknown Rx Inhaler] Doxycycline [Vibramycin CAP] 100 mg PO Q12HR #14 capsule 11/22/17 Unknown Rx HYDROcodone/APAP 5-325 [[place] 1 each PO Q4HR PRN #12 tablet 11/22/17 Unknown Rx 5/325] predniSONE [Deltasone] 20 mg PO QDAY #5 tab 11/22/17 Unknown Rx Review of Systems Constitutional: no weight loss, no weight gain, no fever, no chills Ears, nose, mouth and throat: no ear pain, no ear discharge, no tinnitis, no decreased hearing, no nose pain, no nasal congestion, no nasal discharge Breasts: no change in shape, no swelling, no mass Cardiovascular: palpitations, shortness of breath, no chest pain, no orthopnea, no dyspnea on exertion, no paroxysmal nocturnal dyspnea Respiratory: cough with sputum, excessive sputum, shortness of breath Gastrointestinal: no abdominal pain, no nausea, no vomiting, no diarrhea Genitourinary Female: no pelvic pain, no flank pain, no menorrhagia, no dysuria , no urinary frequency Rectal: no pain, no incontinence, no bleeding Musculoskeletal: no neck stiffness, no neck pain, no shooting arm pain, no arm numbness/tingling, no low back pain, no shooting leg pain, no leg numbness/ tingling Integumentary: no rash, no pruritis, no redness, no sores, no wounds Neurological: no transient paralysis, no paralysis, no weakness, no parathesias , no numbness, no tingling, no seizures Psychiatric: no anxiety, no memory loss, no change in sleep habits, no sleep disturbances, no insomnia, no hypersomnia Endocrine: no cold intolerance, no heat intolerance, no polyphagia, no excessive thirst, no polydipsia, no polyuria Hematologic/Lymphatic: no easy bruising, no easy bleeding, no lymphadenopathy, no lymphedema Allergic/Immunologic: no urticaria, no allergic rhinitis, no wheezing, no persistent infections, no anaphylaxis Exam - Constitutional Vitals: Temp Pulse Resp BP Pulse Ox 98 F 100 H 18 149/94 98 11/24/17 18:12 11/24/17 18:12 11/24/17 18:12 11/24/17 18:12 11/24/17 18:12 General appearance: Present: mild distress - EENT Eyes: Present: PERRL ENT: hearing intact, clear oral mucosa - Neck Neck: Present: supple, normal ROM - Respiratory Respiratory effort: labored Respiratory: bilateral: diminished - Cardiovascular Heart Sounds: Present: S1 & S2. Absent: rub, click - Extremities Extremities: pulses symmetrical, No edema Peripheral Pulses: within normal limits - Abdominal General gastrointestinal: Present: soft, non-tender, non-distended, normal bowel sounds Female genitourinary: Present: normal - Integumentary Integumentary: Present: clear, warm, dry - Musculoskeletal Musculoskeletal: gait normal, strength equal bilaterally - Psychiatric Psychiatric: appropriate mood/affect, intact judgment & insight - Neurologic Neurologic: CNII-XII intact, moves all extremities Results - Labs CBC & Chem 7: 11/24/17 13:10 11/24/17 13:10 Labs: Abnormal lab results 11/24/17 11/24/17 11/24/17 Range/Units 13:10 13:10 13:10 RDW (13.2-15.2) % Lymph # (1.2-5.4) K/mm3 Seg Neutrophils % (40.0-70.0) % Sodium 146 H (137-145) mmol/L Glucose 127 H (65-100) mg/dL Salicylates 1.1 L (2.8-20.0) mg/dL Acetaminophen < 5.0 L (10.0-30.0) ug/mL 11/24/17 Range/Units 13:10 RDW 15.5 H (13.2-15.2) % Lymph # 0.9 L (1.2-5.4) K/mm3 Seg Neutrophils % 80.0 H (40.0-70.0) % Sodium (137-145) mmol/L Glucose (65-100) mg/dL Salicylates (2.8-20.0) mg/dL Acetaminophen (10.0-30.0) ug/mL Assessment and Plan - Patient Problems (1) Acute respiratory failure Current Visit: Yes Status: Acute Qualifiers: Respiratory failure complication: hypoxia Qualified Code(s): J96.01 - Acute respiratory failure with hypoxia Plan to address problem: Supplemental oxygen, nebulizer therapy, NIPPV as clinically indicated, pulse oximetry, chest x ray, treat copd exacerbation (2) COPD exacerbation Current Visit: Yes Status: Chronic Plan to address problem: Supplemental oxygen, nebulizer therapy, IV steroid therapy, IV antibiotics, NIPPV as clinically indicated. (3) Suicidal ideation Current Visit: Yes Status: Acute Plan to address problem: psychiatry consulted in ED. (4) Diastolic CHF Current Visit: Yes Status: Acute Qualifiers: Heart failure chronicity: acute on chronic Qualified Code(s): I50.33 - Acute on chronic diastolic (congestive) heart failure Plan to address problem: BNP, chest xray, supplemental oxygen, strict I/O, monitor uop q shift, monitor blood pressure q shift, resume prehospital medication, (5) Anxiety Current Visit: Yes Status: Acute Plan to address problem: Ativan scheduled, and prn (6) DVT prophylaxis Current Visit: Yes Status: Acute
[2017-11-24] MEDS ORDERED: ZOFRAN PO PRN (18:26)
[2017-11-24] MEDS ORDERED: BENADRYL PO PRN (18:26)
--- NOTE | 2017-11-24 18:54 | XRay Report ---
FINAL REPORT EXAM: XR CHEST ROUTINE 2V HISTORY: sob, cough TECHNIQUE: 2 views of the chest. PRIORS: 11/22/2017 FINDINGS: The cardiomediastinal silhouette appears normal. The lungs are hyperaerated consistent with emphysema. There are bilateral mild linear opacities consistent with subsegmental atelectasis, in the right midlung and left mid to lower lung. The bones and soft tissues are unremarkable. Spinal fusion hardware is noted at the lumbar level. IMPRESSION: Emphysema. Mild bilateral subsegmental atelectasis
[2017-11-24 19:04] LABS: Bacteria,Urine 1+ /HPF (Negative); Hyaline Casts,Urine 36 /LPF; Mucus,Urine FEW /HPF
[2017-11-24 19:07] LABS: Bilirubin,Urine Negative (Negative); Color,Urine Yellow (Yellow)
[2017-11-24 19:08] LABS: Blood,Urine Negative (Negative); Urobilinogen,Urine < 2.0 mg/dL (<2.0)
[2017-11-24 19:15] LABS: Amphetamine Screen,Urine PRESUMPTIVE NEGATIVE; Benzodiazepines Screen,Urine PRESUMPTIVE NEGATIVE; Cannabinoid Screen,Urine PRESUMPTIVE NEGATIVE; Cocaine Screen,Urine PRESUMPTIVE NEGATIVE; Methadone Screen,Urine PRESUMPTIVE NEGATIVE; Opiate Screen,Urine PRESUMPTIVE NEGATIVE
[2017-11-24] MEDS ORDERED: NON-FORMULARY (Budesoni/Formoterol 80-4.5(Nf) 2 PUFF) IH SCH (22:00)
[2017-11-24] MEDS ORDERED: NON-FORMULARY (Quetiapine Fumarate [Seroquel] 100 MG) PO SCH (22:00)
[2017-11-24] MEDS: PULMICORT IH SCH (22:08)
[2017-11-24] MEDS: BROVANA NEBU IH SCH (22:08)
[2017-11-24] MEDS: ZITHROMAX 500 MG in NACL 0.9% 250ML 250 ML IV SCH (22:51)
[2017-11-24] MEDS: ATIVAN PO SCH (23:01)
[2017-11-24] MEDS: SODIUM CHLORIDE FLUSH SYRINGE 10 ML IV SCH (23:02)
[2017-11-24] MEDS: NORCO 5/325 PO PRN (23:02)
[2017-11-25] MEDS: BROVANA NEBU IH SCH ×2 (08:54→20:35)
[2017-11-25] MEDS: PULMICORT IH SCH ×2 (08:54→20:35)
[2017-11-25] MEDS: NORVASC PO SCH (09:23)
[2017-11-25] MEDS: SODIUM CHLORIDE FLUSH SYRINGE 10 ML IV SCH (09:23)
[2017-11-25] MEDS: ATIVAN PO SCH ×3 (09:24→21:25)
[2017-11-25] MEDS: TOPROL XL PO SCH (09:24)
[2017-11-25] MEDS: HALFPRIN EC PO SCH (09:24)
[2017-11-25] MEDS ORDERED: NALOXONE HCL PO SCH (10:00)
[2017-11-25] MEDS ORDERED: BUPRENORPHINE HCL PO SCH (10:00)
[2017-11-25] MEDS: ZITHROMAX 500 MG in NACL 0.9% 250ML 250 ML IV SCH (10:25)
--- NOTE | 2017-11-25 16:27 | Progress Note ---
Assessment and Plan Assessment and Plan (1) Acute respiratory failure Current Visit: Yes Status: Acute Qualifiers: Respiratory failure complication: hypoxia Qualified Code(s): J96.01 - Acute respiratory failure with hypoxia Plan to address problem: Supplemental oxygen, nebulizer therapy, NIPPV as clinically indicated, pulse oximetry, chest x ray, treat copd exacerbation Improving (2) COPD exacerbation Current Visit: Yes Status: Chronic Plan to address problem: Supplemental oxygen, nebulizer therapy, IV steroid therapy, IV antibiotics, NIPPV as clinically indicated. Improving (3) Suicidal ideation Current Visit: Yes Status: Acute Plan to address problem: MH f/u (4) Diastolic CHF Current Visit: Yes Status: Acute Qualifiers: Heart failure chronicity: acute on chronic Qualified Code(s): I50.33 - Acute on chronic diastolic (congestive) heart failure Plan to address problem: BNP, chest xray, supplemental oxygen, strict I/O, monitor uop q shift, monitor blood pressure q shift, resume prehospital medication, (5) Anxiety Current Visit: Yes Status: Acute Plan to address problem: Ativan scheduled, and prn (6) DVT prophylaxis Current Visit: Yes Status: Acute Subjective Date of service: 11/25/17 Objective - Constitutional Vitals: Vital Signs - 12hr 11/25/17 11/25/17 11/25/17 08:57 08:58 09:24 Temperature 98.6 F Pulse Rate 78 Pulse Rate [ 84 100 H Bilateral] Respiratory 20 Rate Respiratory 18 20 Rate [Bilateral ] Blood Pressure 140/70 O2 Sat by Pulse 99 98 Oximetry 11/25/17 13:14 Temperature 98.2 F Pulse Rate 94 H Pulse Rate [ Bilateral] Respiratory 20 Rate Respiratory Rate [Bilateral ] Blood Pressure 124/62 O2 Sat by Pulse 94 Oximetry - Labs CBC & Chem 7: 11/24/17 13:10 11/24/17 13:10 Labs: Abnormal lab results 11/24/17 Range/Units 18:52 Ur Specific [place] 1.035 H (1.003-1.030)
[2017-11-25] MEDS ORDERED: BENADRYL PO ONE (23:20)
[2017-11-26] MEDS: BROVANA NEBU IH SCH ×2 (07:38→20:32)
[2017-11-26] MEDS: PULMICORT IH SCH ×2 (07:38→20:32)
[2017-11-26] MEDS: ATIVAN PO SCH ×3 (07:42→20:19)
--- NOTE | 2017-11-26 08:21 | Progress Note ---
Assessment and Plan Assessment and plan: --Suicidal ideation; Suicidal watch, supportive care, such following 1013 status, possible transfer to psych facility when medically stable --Acute hypoxic respiratory failure; Secondary to COPD exacerbation, continue oxygen nebulizer's IV steroids Antibiotics, BiPAP as needed, Evaluation for home oxygen at discharge --Acute exacerbation of COPD; continue oxygen titrate O2 sats to more than 90%, nebulizers, , steroids, antibiotics and supportive --Hypertension; moderate control, continue current antihypertensives and when necessary medications --DVT prophylaxis; add Lovenox Follow psych evaluation and recommendations Possible discharge home or inpatient psych facility when medically stable Patient is medically stable for discharge Pending psych evaluation History Interval history: Patient seen and examined this morning medical records reviewed Admitted with suicidal thoughts and ideation, patient on suicide watch No new complaints Feels slightly better, denies suicidal thoughts today Alert awake oriented 3 Vital signs reviewed Hospitalist Physical - Constitutional Vitals: Temp Pulse Resp BP Pulse Ox 98.4 F 76 22 146/78 97 11/26/17 07:54 11/26/17 07:54 11/26/17 07:54 11/26/17 07:54 11/26/17 07:54 General appearance: Present: no acute distress, well-nourished, obese - EENT Eyes: Present: PERRL, EOM intact - Neck Neck: Present: supple, normal ROM - Respiratory Respiratory effort: normal Respiratory: bilateral: diminished, negative: rales, rhonchi, wheezing - Cardiovascular Rhythm: regular Heart Sounds: Present: S1 & S2 - Extremities Extremities: no ischemia, No edema - Abdominal General gastrointestinal: soft, non-tender, non-distended, normal bowel sounds - Integumentary Integumentary: Present: clear, warm - Psychiatric Psychiatric: appropriate mood/affect, cooperative - Neurologic Neurologic: CNII-XII intact, moves all extremities Results - Labs CBC & Chem 7: 11/24/17 13:10 11/24/17 13:10 Labs: Laboratory Last Values WBC 6.3 K/mm3 (4.5-11.0) 11/24/17 13:10 RBC 4.58 M/mm3 (3.65-5.03) 11/24/17 13:10 Hgb 13.6 gm/dl (10.1-14.3) 11/24/17 13:10 Hct 40.1 % (30.3-42.9) 11/24/17 13:10 MCV 88 fl (79-97) 11/24/17 13:10 MCH 30 pg (28-32) 11/24/17 13:10 MCHC 34 % (30-34) 11/24/17 13:10 RDW 15.5 % (13.2-15.2) H 11/24/17 13:10 Plt Count 183 K/mm3 (140-440) 11/24/17 13:10 Lymph % (Auto) 14.5 % (13.4-35.0) 11/24/17 13:10 [place] % (Auto) 4.2 % (0.0-7.3) 11/24/17 13:10 Eos % (Auto) 1.0 % (0.0-4.3) 11/24/17 13:10 Baso % (Auto) 0.3 % (0.0-1.8) 11/24/17 13:10 Lymph # 0.9 K/mm3 (1.2-5.4) L 11/24/17 13:10 [place] # 0.3 K/mm3 (0.0-0.8) 11/24/17 13:10 Eos # 0.1 K/mm3 (0.0-0.4) 11/24/17 13:10 Baso # 0.0 K/mm3 (0.0-0.1) 11/24/17 13:10 Seg Neutrophils % 80.0 % (40.0-70.0) H 11/24/17 13:10 Seg Neutrophils # 5.0 K/mm3 (1.8-7.7) 11/24/17 13:10 Sodium 146 mmol/L (137-145) H 11/24/17 13:10 Potassium 3.6 mmol/L (3.6-5.0) 11/24/17 13:10 Chloride 100.4 mmol/L (98-107) 11/24/17 13:10 Carbon Dioxide 30 mmol/L (22-30) 11/24/17 13:10 Anion Gap 19 mmol/L 11/24/17 13:10 BUN 9 mg/dL (7-17) 11/24/17 13:10 Creatinine 0.7 mg/dL (0.7-1.2) 11/24/17 13:10 Estimated GFR > 60 ml/min 11/24/17 13:10 BUN/Creatinine Ratio 13 % 11/24/17 13:10 Glucose 127 mg/dL (65-100) H 11/24/17 13:10 Calcium 9.9 mg/dL (8.4-10.2) 11/24/17 13:10 Urine Color Yellow (Yellow) 11/24/17 18:52 Urine Turbidity Clear (Clear) 11/24/17 18:52 Urine pH 6.0 (5.0-7.0) 11/24/17 18:52 Ur Specific [place] 1.035 (1.003-1.030) H 11/24/17 18:52 Urine Protein 100 mg/dl mg/dL (Negative) 11/24/17 18:52 Urine Glucose (UA) Negative mg/dL (Negative) 11/24/17 18:52 Urine Ketones Trace mg/dL (Negative) 11/24/17 18:52 Urine Blood Negative (Negative) 11/24/17 18:52 Urine Nitrite Negative (Negative) 11/24/17 18:52 Ur Reducing Substances Not Reportable 11/24/17 18:52 Urine Bilirubin Negative (Negative) 11/24/17 18:52 Urine Ictotest Not Reportable 11/24/17 18:52 Urine Urobilinogen < 2.0 mg/dL (<2.0) 11/24/17 18:52 Ur Leukocyte Esterase Small (Negative) 11/24/17 18:52 Urine WBC (Auto) 3.0 /HPF (0.0-6.0) 11/24/17 18:52 Urine RBC (Auto) 2.0 /HPF (0.0-6.0) 11/24/17 18:52 U Epithel Cells (Auto) 1.0 /HPF (0-13.0) 11/24/17 18:52 Urine Bacteria (Auto) 1+ /HPF (Negative) 11/24/17 18:52 Hyaline Casts 36 /LPF 11/24/17 18:52 Urine Mucus Few /HPF 11/24/17 18:52 Salicylates 1.1 mg/dL (2.8-20.0) L 11/24/17 13:10 Urine Opiates Screen Presumptive negative 11/24/17 18:52 Urine Methadone Screen Presumptive negative 11/24/17 18:52 Acetaminophen < 5.0 ug/mL (10.0-30.0) L 11/24/17 13:10 Ur Barbiturates Screen Presumptive negative 11/24/17 18:52 Ur Phencyclidine Scrn Presumptive negative 11/24/17 18:52 Ur Amphetamines Screen Presumptive negative 11/24/17 18:52 U Benzodiazepines Scrn Presumptive negative 11/24/17 18:52 Urine Cocaine Screen Presumptive negative 11/24/17 18:52 U Marijuana (THC) Screen Presumptive negative 11/24/17 18:52 Drugs of Abuse Note Disclamer 11/24/17 18:52 Plasma/Serum Alcohol < 0.01 % (0-0.07) 11/24/17 13:10
[2017-11-26] MEDS: ZITHROMAX 500 MG in NACL 0.9% 250ML 250 ML IV SCH (09:17)
[2017-11-26] MEDS: TOPROL XL PO SCH (09:19)
[2017-11-26] MEDS: HALFPRIN EC PO SCH (09:19)
[2017-11-26] MEDS: SODIUM CHLORIDE FLUSH SYRINGE 10 ML IV SCH ×3 (09:19→21:21)
[2017-11-26] MEDS: NORVASC PO SCH (09:20)
[2017-11-26] MEDS ORDERED: MILK OF MAGNESIA PO PRN (16:51)
[2017-11-26] MEDS: LOVENOX SUB-Q SCH (21:19)
[2017-11-26] MEDS: BENADRYL PO PRN (21:20)
[2017-11-26] MEDS: NORCO 5/325 PO PRN (21:20)
[2017-11-27] MEDS: ATIVAN PO SCH ×3 (08:39→19:45)
[2017-11-27] MEDS: BROVANA NEBU IH SCH ×2 (09:57→19:57)
[2017-11-27] MEDS: PULMICORT IH SCH ×2 (09:57→19:57)
[2017-11-27] MEDS: TOPROL XL PO SCH (10:27)
[2017-11-27] MEDS: ZITHROMAX PO SCH (10:28)
[2017-11-27] MEDS: NORVASC PO SCH (10:28)
[2017-11-27] MEDS: HALFPRIN EC PO SCH (10:28)
[2017-11-27] MEDS: SODIUM CHLORIDE FLUSH SYRINGE 10 ML IV SCH ×2 (10:29→21:14)
[2017-11-27] MEDS: DELTASONE PO SCH (10:35)
--- NOTE | 2017-11-27 14:53 | Consultation ---
History of Present Illness - Reason for Consult Consult date: 11/27/17 Reason for consult: Initial Psychiatric Evaluation - Chief Complaint Chief complaint: I dont feel good - History of Present Psychiatric Illness " Suicidal thoughts" Medications and Allergies Allergies Allergy/AdvReac Type Severity Reaction Status Date / Time No Known Allergies Allergy Verified 08/17/16 12:42 Home Medications Medication Instructions Recorded Confirmed Last Taken Type amLODIPine [Norvasc] 10 mg PO DAILY 01/28/14 11/25/17 1 Day Ago History ~01/04/16 10 Nebivolol HCl [Bystolic] 15 mg PO QDAY 11/25/15 11/25/17 1 Day Ago History ~01/04/16 10 ALBUTEROL Inhaler [ProAir HFA 2 puff PO PRN 11/27/16 11/25/17 Unknown History Inhaler] Buprenorphine HCl/Naloxone HCl 1 tab PO QDAY 11/27/16 11/25/17 11/24/17 17:00 History [Zubsolv 1.4-0.36 mg Tablet Sl] LORazepam [Ativan] 1 mg PO TID 11/27/16 11/25/17 11/24/17 06:00 History Quetiapine Fumarate [Seroquel] 100 mg PO QHS 11/27/16 11/25/17 11/24/17 21:00 History diphenhydrAMINE [Benadryl CAP] 50 mg PO QHS PRN 11/27/16 11/25/17 Unknown History Aspirin EC [Aspirin Enteric Coated 81 mg PO QDAY #30 tablet 11/30/16 11/25/17 Unknown Rx TAB] AtorvaSTATin [Lipitor] 40 mg PO QHS #30 tablet 11/30/16 11/25/17 Unknown Rx Budesoni/Formoterol 80-4.5(Nf) 2 puff IH BID 30 Days inha 11/30/16 11/25/17 17:00 Rx [Symbicort 80-4.5 (Nf)] Metoprolol Xl [Metoprolol 100 mg PO QDAY #30 tablet 12/03/16 11/25/17 Unknown Rx SUCCINATE ER TAB] Ondansetron [Zofran TAB] 4 mg PO Q8HR PRN #30 tablet 12/03/16 11/25/17 Unknown Rx amLODIPine [Norvasc] 10 mg PO DAILY #30 tablet 12/03/16 11/25/17 11/24/17 10:00 Rx predniSONE [Deltasone] 50 mg PO QDAY #1 tab 12/03/16 11/25/17 Unknown Rx ALBUTEROL Inhaler [ProAir HFA 2 puff IH QID PRN #1 inhalation 11/22/17 11/25/17 11/24/17 18:00 Rx Inhaler] Doxycycline [Vibramycin CAP] 100 mg PO Q12HR #14 capsule 11/22/17 11/25/17 Unknown Rx HYDROcodone/APAP 5-325 [[place] 1 each PO Q4HR PRN #12 tablet 11/22/17 11/25/17 Unknown Rx 5/325] predniSONE [Deltasone] 20 mg PO QDAY #5 tab 11/22/17 11/25/17 Unknown Rx Active Meds: Active Medications Acetaminophen (Tylenol) 650 mg PO Q4H PRN PRN Reason: Pain MILD(1-3)/Fever >100.5/DOUGLAS Last Admin: 11/25/17 10:34 Dose: 650 mg Acetaminophen/Hydrocodone Bitart ([place] 5/325) 1 each PO Q4HR PRN PRN Reason: Pain Last Admin: 11/26/17 21:20 Dose: 1 each Albuterol (Proventil) 2.5 mg IH Q4HRT PRN PRN Reason: Shortness Of Breath Last Admin: 11/25/17 08:54 Dose: 2.5 mg Amlodipine Besylate (Norvasc) 10 mg PO DAILY PENDING SALE TO [facility] Last Admin: 11/27/17 10:28 Dose: 10 mg Arformoterol Tartrate (Brovana Nebu) 15 mcg IH Q12HRT PENDING SALE TO [facility] Last Admin: 11/27/17 09:57 Dose: 15 mcg Aspirin (Halfprin Ec) 81 mg PO QDAY PENDING SALE TO [facility] Last Admin: 11/27/17 10:28 Dose: 81 mg Atorvastatin Calcium (Lipitor) 40 mg PO QHS PENDING SALE TO [facility] Last Admin: 11/26/17 21:20 Dose: 40 mg Azithromycin (Zithromax) 500 mg PO QDAY PENDING SALE TO [facility] Last Admin: 11/27/17 10:28 Dose: 500 mg Budesonide (Pulmicort) 0.5 mg IH Q12HRT PENDING SALE TO [facility] Last Admin: 11/27/17 09:57 Dose: 0.5 mg Diphenhydramine HCl (Benadryl) 50 mg PO QHS PRN PRN Reason: Sleep Last Admin: 11/26/17 21:20 Dose: 50 mg Enoxaparin Sodium (Lovenox) 40 mg SUB-Q QDAY@2200 PENDING SALE TO [facility] Last Admin: 11/26/17 21:19 Dose: 40 mg Lorazepam (Ativan) 1 mg PO TID PENDING SALE TO [facility] Last Admin: 11/27/17 08:39 Dose: 1 mg Magnesium Hydroxide (Milk Of Magnesia) 30 ml PO QDAY PRN PRN Reason: Constipation Last Admin: 11/26/17 21:19 Dose: 30 ml Metoprolol Succinate (Toprol Xl) 100 mg PO QDAY PENDING SALE TO [facility] Last Admin: 11/27/17 10:27 Dose: 100 mg Miscellaneous Medication (Buprenorphine Hcl/Naloxone Hcl [Zubsolv 1.4-0.36 Mg Tablet Sl]) 1 tab PO QDAY PENDING SALE TO [facility] Ondansetron HCl (Zofran) 4 mg IV Q8H PRN PRN Reason: Nausea And Vomiting Ondansetron HCl (Zofran) 4 mg PO Q8HR PRN PRN Reason: Nausea Prednisone (Deltasone) 40 mg PO QDAY PENDING SALE TO [facility] Last Admin: 11/27/17 10:35 Dose: 40 mg Quetiapine Fumarate (Seroquel) 100 mg PO QHS PENDING SALE TO [facility] Last Admin: 11/26/17 21:20 Dose: 100 mg Sodium Chloride (Sodium Chloride Flush Syringe 10 Ml) 10 ml IV BID PENDING SALE TO [facility] Last Admin: 11/27/17 10:29 Dose: 10 ml Sodium Chloride (Sodium Chloride Flush Syringe 10 Ml) 10 ml IV PRN PRN PRN Reason: LINE FLUSH Mental Status Exam - Vital signs Last Vital Signs Temp 98.4 F 11/27/17 13:40 Pulse 73 11/27/17 13:40 Resp 19 11/27/17 13:40 BP 136/74 11/27/17 13:40 Pulse Ox 95 11/27/17 13:40 Results Result Diagrams: 11/24/17 13:10 11/24/17 13:10 All other labs normal. Assessment and Plan Assessment and plan: 1. Restart/Increase Zoloft 100mg po QAM depression/anxiety. 2. Patient educated on medications' black box warning increase suicidality. Patient verbalizes full understanding"
--- NOTE | 2017-11-27 16:00 | Progress Note ---
Assessment and Plan Assessment and plan: --Suicidal ideation; Suicidal watch, supportive care, such following 1013 status, possible transfer to psych facility when medically stable --Acute hypoxic respiratory failure; improved Secondary to COPD exacerbation, continue oxygen nebulizer's tapering doses IV steroids Antibiotics, BiPAP as needed, Evaluation for home oxygen at discharge --Acute exacerbation of COPD; continue oxygen titrate O2 sats to more than 90%, nebulizers, , steroids, antibiotics and supportive --Hypertension; moderate control, continue current antihypertensives and when necessary medications --DVT prophylaxis; add Lovenox Follow psych evaluation and recommendations Possible discharge home or inpatient psych facility when medically stable Possible discharge home tomorrow if stable Follow psych evaluation and recommendations History Interval history: Patient seen and examined medical records reviewed Feels slightly better denies any suicidal thoughts or ideation Alert awake oriented, not in acute distress Vital signs reviewed sales and marketing associate at the bedside Hospitalist Physical - Constitutional Vitals: Temp Pulse Resp BP Pulse Ox 98.4 F 73 19 136/74 95 11/27/17 13:40 11/27/17 13:40 11/27/17 13:40 11/27/17 13:40 11/27/17 13:40 General appearance: Present: no acute distress, well-nourished, obese - EENT Eyes: Present: PERRL, EOM intact - Neck Neck: Present: supple, normal ROM - Respiratory Respiratory effort: normal Respiratory: bilateral: diminished, negative: rales, rhonchi, wheezing - Cardiovascular Rhythm: regular Heart Sounds: Present: S1 & S2 - Extremities Extremities: no ischemia, No edema Peripheral Pulses: within normal limits - Abdominal General gastrointestinal: soft, non-tender, non-distended, normal bowel sounds - Integumentary Integumentary: Present: clear, warm - Psychiatric Psychiatric: appropriate mood/affect, cooperative - Neurologic Neurologic: CNII-XII intact, moves all extremities Results - Labs CBC & Chem 7: 11/24/17 13:10 11/24/17 13:10 Labs: Laboratory Last Values WBC 6.3 K/mm3 (4.5-11.0) 11/24/17 13:10 RBC 4.58 M/mm3 (3.65-5.03) 11/24/17 13:10 Hgb 13.6 gm/dl (10.1-14.3) 11/24/17 13:10 Hct 40.1 % (30.3-42.9) 11/24/17 13:10 MCV 88 fl (79-97) 11/24/17 13:10 MCH 30 pg (28-32) 11/24/17 13:10 MCHC 34 % (30-34) 11/24/17 13:10 RDW 15.5 % (13.2-15.2) H 11/24/17 13:10 Plt Count 183 K/mm3 (140-440) 11/24/17 13:10 Lymph % (Auto) 14.5 % (13.4-35.0) 11/24/17 13:10 [place] % (Auto) 4.2 % (0.0-7.3) 11/24/17 13:10 Eos % (Auto) 1.0 % (0.0-4.3) 11/24/17 13:10 Baso % (Auto) 0.3 % (0.0-1.8) 11/24/17 13:10 Lymph # 0.9 K/mm3 (1.2-5.4) L 11/24/17 13:10 [place] # 0.3 K/mm3 (0.0-0.8) 11/24/17 13:10 Eos # 0.1 K/mm3 (0.0-0.4) 11/24/17 13:10 Baso # 0.0 K/mm3 (0.0-0.1) 11/24/17 13:10 Seg Neutrophils % 80.0 % (40.0-70.0) H 11/24/17 13:10 Seg Neutrophils # 5.0 K/mm3 (1.8-7.7) 11/24/17 13:10 Sodium 146 mmol/L (137-145) H 11/24/17 13:10 Potassium 3.6 mmol/L (3.6-5.0) 11/24/17 13:10 Chloride 100.4 mmol/L (98-107) 11/24/17 13:10 Carbon Dioxide 30 mmol/L (22-30) 11/24/17 13:10 Anion Gap 19 mmol/L 11/24/17 13:10 BUN 9 mg/dL (7-17) 11/24/17 13:10 Creatinine 0.7 mg/dL (0.7-1.2) 11/24/17 13:10 Estimated GFR > 60 ml/min 11/24/17 13:10 BUN/Creatinine Ratio 13 % 11/24/17 13:10 Glucose 127 mg/dL (65-100) H 11/24/17 13:10 Calcium 9.9 mg/dL (8.4-10.2) 11/24/17 13:10 Urine Color Yellow (Yellow) 11/24/17 18:52 Urine Turbidity Clear (Clear) 11/24/17 18:52 Urine pH 6.0 (5.0-7.0) 11/24/17 18:52 Ur Specific [place] 1.035 (1.003-1.030) H 11/24/17 18:52 Urine Protein 100 mg/dl mg/dL (Negative) 11/24/17 18:52 Urine Glucose (UA) Negative mg/dL (Negative) 11/24/17 18:52 Urine Ketones Trace mg/dL (Negative) 11/24/17 18:52 Urine Blood Negative (Negative) 11/24/17 18:52 Urine Nitrite Negative (Negative) 11/24/17 18:52 Ur Reducing Substances Not Reportable 11/24/17 18:52 Urine Bilirubin Negative (Negative) 11/24/17 18:52 Urine Ictotest Not Reportable 11/24/17 18:52 Urine Urobilinogen < 2.0 mg/dL (<2.0) 11/24/17 18:52 Ur Leukocyte Esterase Small (Negative) 11/24/17 18:52 Urine WBC (Auto) 3.0 /HPF (0.0-6.0) 11/24/17 18:52 Urine RBC (Auto) 2.0 /HPF (0.0-6.0) 11/24/17 18:52 U Epithel Cells (Auto) 1.0 /HPF (0-13.0) 11/24/17 18:52 Urine Bacteria (Auto) 1+ /HPF (Negative) 11/24/17 18:52 Hyaline Casts 36 /LPF 11/24/17 18:52 Urine Mucus Few /HPF 11/24/17 18:52 Salicylates 1.1 mg/dL (2.8-20.0) L 11/24/17 13:10 Urine Opiates Screen Presumptive negative 11/24/17 18:52 Urine Methadone Screen Presumptive negative 11/24/17 18:52 Acetaminophen < 5.0 ug/mL (10.0-30.0) L 11/24/17 13:10 Ur Barbiturates Screen Presumptive negative 11/24/17 18:52 Ur Phencyclidine Scrn Presumptive negative 11/24/17 18:52 Ur Amphetamines Screen Presumptive negative 11/24/17 18:52 U Benzodiazepines Scrn Presumptive negative 11/24/17 18:52 Urine Cocaine Screen Presumptive negative 11/24/17 18:52 U Marijuana (THC) Screen Presumptive negative 11/24/17 18:52 Drugs of Abuse Note Disclamer 11/24/17 18:52 Plasma/Serum Alcohol < 0.01 % (0-0.07) 11/24/17 13:10
[2017-11-27] MEDS: LOVENOX SUB-Q SCH (21:12)
[2017-11-27] MEDS: BENADRYL PO PRN (21:22)
[2017-11-28] MEDS: PULMICORT IH SCH ×2 (07:30→21:27)
[2017-11-28] MEDS: BROVANA NEBU IH SCH ×2 (07:31→21:27)
--- NOTE | 2017-11-28 08:17 | Progress Note ---
Assessment and Plan Assessment and plan: --Suicidal ideation; Suicidal watch, supportive care, such following 1013 status, possible transfer to psych facility when medically stable --Acute hypoxic respiratory failure; improved Secondary to COPD exacerbation, continue oxygen nebulizer's tapering doses IV steroids Antibiotics, BiPAP as needed, Evaluation for home oxygen at discharge --Acute exacerbation of COPD; continue oxygen titrate O2 sats to more than 90%, nebulizers, , steroids, antibiotics and supportive --Hypertension; moderate control, continue current antihypertensives and when necessary medications --DVT prophylaxis; add Lovenox Psych following Patient is medically stable for discharge Disposition per psych History Interval history: Patient seen and examined medical records reviewed Physical signs temperature no new complaints Denies suicidal thoughts or ideation alert,awake, Oriented 3 not in acute distress,Vital signs reviewed Hospitalist Physical - Constitutional Vitals: Temp Pulse Resp BP Pulse Ox 98.5 F 56 L 20 140/70 96 11/28/17 06:31 11/28/17 06:31 11/28/17 06:31 11/28/17 06:31 11/28/17 06:31 General appearance: Present: no acute distress, well-nourished, obese - EENT Eyes: Present: PERRL, EOM intact - Neck Neck: Present: supple, normal ROM - Respiratory Respiratory effort: normal Respiratory: negative: rales, rhonchi, wheezing - Cardiovascular Rhythm: regular Heart Sounds: Present: S1 & S2 - Extremities Extremities: no ischemia, No edema - Abdominal General gastrointestinal: soft, non-tender, non-distended, normal bowel sounds - Integumentary Integumentary: Present: clear, warm - Psychiatric Psychiatric: appropriate mood/affect, cooperative - Neurologic Neurologic: CNII-XII intact, moves all extremities Results - Labs CBC & Chem 7: 11/24/17 13:10 11/24/17 13:10 Labs: Laboratory Last Values WBC 6.3 K/mm3 (4.5-11.0) 11/24/17 13:10 RBC 4.58 M/mm3 (3.65-5.03) 11/24/17 13:10 Hgb 13.6 gm/dl (10.1-14.3) 11/24/17 13:10 Hct 40.1 % (30.3-42.9) 11/24/17 13:10 MCV 88 fl (79-97) 11/24/17 13:10 MCH 30 pg (28-32) 11/24/17 13:10 MCHC 34 % (30-34) 11/24/17 13:10 RDW 15.5 % (13.2-15.2) H 11/24/17 13:10 Plt Count 183 K/mm3 (140-440) 11/24/17 13:10 Lymph % (Auto) 14.5 % (13.4-35.0) 11/24/17 13:10 [place] % (Auto) 4.2 % (0.0-7.3) 11/24/17 13:10 Eos % (Auto) 1.0 % (0.0-4.3) 11/24/17 13:10 Baso % (Auto) 0.3 % (0.0-1.8) 11/24/17 13:10 Lymph # 0.9 K/mm3 (1.2-5.4) L 11/24/17 13:10 [place] # 0.3 K/mm3 (0.0-0.8) 11/24/17 13:10 Eos # 0.1 K/mm3 (0.0-0.4) 11/24/17 13:10 Baso # 0.0 K/mm3 (0.0-0.1) 11/24/17 13:10 Seg Neutrophils % 80.0 % (40.0-70.0) H 11/24/17 13:10 Seg Neutrophils # 5.0 K/mm3 (1.8-7.7) 11/24/17 13:10 Sodium 146 mmol/L (137-145) H 11/24/17 13:10 Potassium 3.6 mmol/L (3.6-5.0) 11/24/17 13:10 Chloride 100.4 mmol/L (98-107) 11/24/17 13:10 Carbon Dioxide 30 mmol/L (22-30) 11/24/17 13:10 Anion Gap 19 mmol/L 11/24/17 13:10 BUN 9 mg/dL (7-17) 11/24/17 13:10 Creatinine 0.7 mg/dL (0.7-1.2) 11/24/17 13:10 Estimated GFR > 60 ml/min 11/24/17 13:10 BUN/Creatinine Ratio 13 % 05/16/18 13:10 Glucose 127 mg/dL (65-100) H 11/24/17 13:10 Calcium 9.9 mg/dL (8.4-10.2) 11/24/17 13:10 Urine Color Yellow (Yellow) 11/24/17 18:52 Urine Turbidity Clear (Clear) 11/24/17 18:52 Urine pH 6.0 (5.0-7.0) 11/24/17 18:52 Ur Specific [place] 1.035 (1.003-1.030) H 11/24/17 18:52 Urine Protein 100 mg/dl mg/dL (Negative) 11/24/17 18:52 Urine Glucose (UA) Negative mg/dL (Negative) 11/24/17 18:52 Urine Ketones Trace mg/dL (Negative) 11/24/17 18:52 Urine Blood Negative (Negative) 11/24/17 18:52 Urine Nitrite Negative (Negative) 11/24/17 18:52 Ur Reducing Substances Not Reportable 11/24/17 18:52 Urine Bilirubin Negative (Negative) 11/24/17 18:52 Urine Ictotest Not Reportable 11/24/17 18:52 Urine Urobilinogen < 2.0 mg/dL (<2.0) 11/24/17 18:52 Ur Leukocyte Esterase Small (Negative) 11/24/17 18:52 Urine WBC (Auto) 3.0 /HPF (0.0-6.0) 11/24/17 18:52 Urine RBC (Auto) 2.0 /HPF (0.0-6.0) 11/24/17 18:52 U Epithel Cells (Auto) 1.0 /HPF (0-13.0) 11/24/17 18:52 Urine Bacteria (Auto) 1+ /HPF (Negative) 11/24/17 18:52 Hyaline Casts 36 /LPF 11/24/17 18:52 Urine Mucus Few /HPF 11/24/17 18:52 Salicylates 1.1 mg/dL (2.8-20.0) L 11/24/17 13:10 Urine Opiates Screen Presumptive negative 11/24/17 18:52 Urine Methadone Screen Presumptive negative 11/24/17 18:52 Acetaminophen < 5.0 ug/mL (10.0-30.0) L 11/24/17 13:10 Ur Barbiturates Screen Presumptive negative 11/24/17 18:52 Ur Phencyclidine Scrn Presumptive negative 11/24/17 18:52 Ur Amphetamines Screen Presumptive negative 11/24/17 18:52 U Benzodiazepines Scrn Presumptive negative 11/24/17 18:52 Urine Cocaine Screen Presumptive negative 11/24/17 18:52 U Marijuana (THC) Screen Presumptive negative 11/24/17 18:52 Drugs of Abuse Note Disclamer 11/24/17 18:52 Plasma/Serum Alcohol < 0.01 % (0-0.07) 11/24/17 13:10
[2017-11-28] MEDS: ATIVAN PO SCH ×3 (08:47→21:28)
[2017-11-28] MEDS: SODIUM CHLORIDE FLUSH SYRINGE 10 ML IV SCH ×2 (10:22→21:29)
[2017-11-28] MEDS: ZOLOFT PO SCH (10:22)
[2017-11-28] MEDS: ZITHROMAX PO SCH (10:23)
[2017-11-28] MEDS: TOPROL XL PO SCH (10:24)
[2017-11-28] MEDS: DELTASONE PO SCH (10:24)
[2017-11-28] MEDS: HALFPRIN EC PO SCH (10:24)
[2017-11-28] MEDS: NORVASC PO SCH (10:25)
[2017-11-28] MEDS: LOVENOX SUB-Q SCH (21:28)
[2017-11-29] MEDS: ATIVAN PO SCH ×3 (08:45→19:50)
[2017-11-29] MEDS: PULMICORT IH SCH ×2 (09:48→22:23)
[2017-11-29] MEDS: BROVANA NEBU IH SCH ×2 (09:49→22:23)
[2017-11-29] MEDS: ZITHROMAX PO SCH (11:13)
[2017-11-29] MEDS ORDERED: DESYREL PO PRN (11:23)
--- NOTE | 2017-11-29 11:25 | Progress Note ---
Subjective - Reason for Consult Consult date: 11/29/17 Reason for consult: Psychiatry Follow-up - Chief Complaint Chief complaint: "I am still suicidal" 67-year-old female the past medical history of CHF, COPD (2-3 L) , hypertension , anxiety and chronic back pain presents to the hospital complaining of continued shortness of breath and coughing. Psychiatry was consulted to see patient for SI's. Today the patient is calm, but withdrawn during the assessment. She stated that her siblings has and her son disrespect her. Also, she struggles with needing continuous O2 for her COPD. She stated that she smoked cigarettes for a long time prior to her dx of COPD. She stated being suicidal without a plan. She stated that her thoughts of suicide is brought on by life issues that she cannot control. She denies HI's and AVH's. She stated not liking how Seroquel makes her feel. She stated that she takes that medication for sleep. She denies any side effects of Zoloft. Mental Status Exam - Vital signs Last Vital Signs Temp 98.9 F 11/29/17 08:00 Pulse 80 11/29/17 09:57 Resp 18 11/29/17 09:57 BP 169/79 11/29/17 08:00 Pulse Ox 98 11/29/17 09:55 - Exam Narrative exam: MSE: Appearance: calm, cooperative Behavior: regular eye contact Speech: regular rate and tone Mood: "okay" withdrawn Affect: flat Thought Process: circumstantial Thought Content: denies HI's and AVH's Motor Activity: ambulatory Cognition: A/O x 3 Insight: fair Judgment: fair Assessment and Plan Impression: MDD, Severe Type. Today the patient is calm, but withdrawn during the assessment. The patient endorsed SI's without a plan. DDx: R/O Bipolar DO Recommendation/Plan: Continue 1013 with placement to inpatient psy services. Continue Zoloft 100 mg PO daily for depression. Start Trazodone 50 mg PO HS PRN for sleep. D/C'd Seroquel. Discussed possible suicidality/medicaion induced krishna reference Zoloft/Trazodone with patient.
[2017-11-29] MEDS: TOPROL XL PO SCH (12:19)
[2017-11-29] MEDS: DELTASONE PO SCH (12:20)
[2017-11-29] MEDS: NORVASC PO SCH (12:20)
[2017-11-29] MEDS: HALFPRIN EC PO SCH (12:20)
[2017-11-29] MEDS: ZOLOFT PO SCH (12:20)
[2017-11-29] MEDS: SODIUM CHLORIDE FLUSH SYRINGE 10 ML IV SCH ×2 (14:14→22:16)
[2017-11-29] MEDS: ZOFRAN IV PRN (17:30)
--- NOTE | 2017-11-29 19:24 | Progress Note ---
Assessment and Plan Assessment and plan: --Acute hypoxic respiratory failure; improved Secondary to COPD exacerbation, continue oxygen nebulizer's tapering doses IV steroids Antibiotics, BiPAP as needed, Evaluation for home oxygen at discharge --Acute exacerbation of COPD; continue oxygen titrate O2 sats to more than 90%, nebulizers, , steroids, antibiotics and supportive --Hypertension; moderate control, continue current antihypertensives and when necessary medications --Suicidal ideation; Suicidal watch, supportive care, such following 1013 status, possible transfer to psych facility --DVT prophylaxis; add Lovenox Psych following Patient is medically stable for discharge Disposition per psych History Interval history: She feels better no new complaints Vital signs reviewed Medically stable for discharge Psych following Hospitalist Physical - Constitutional Vitals: Temp Pulse Resp BP Pulse Ox 98.7 F 69 18 154/85 98 11/29/17 16:15 11/29/17 16:15 11/29/17 16:15 11/29/17 16:15 11/29/17 09:55 General appearance: Present: no acute distress, well-nourished, obese - EENT Eyes: Present: PERRL, EOM intact - Neck Neck: Present: supple, normal ROM - Respiratory Respiratory effort: normal Respiratory: bilateral: diminished, negative: rales, rhonchi, wheezing - Cardiovascular Rhythm: regular Heart Sounds: Present: S1 & S2 - Extremities Extremities: no ischemia, No edema - Abdominal General gastrointestinal: soft, non-tender, non-distended, normal bowel sounds - Integumentary Integumentary: Present: clear, warm - Psychiatric Psychiatric: appropriate mood/affect, cooperative - Neurologic Neurologic: moves all extremities Results - Labs CBC & Chem 7: 11/24/17 13:10 11/24/17 13:10 Labs: Laboratory Last Values WBC 6.3 K/mm3 (4.5-11.0) 11/24/17 13:10 RBC 4.58 M/mm3 (3.65-5.03) 11/24/17 13:10 Hgb 13.6 gm/dl (10.1-14.3) 11/24/17 13:10 Hct 40.1 % (30.3-42.9) 11/24/17 13:10 MCV 88 fl (79-97) 11/24/17 13:10 MCH 30 pg (28-32) 11/24/17 13:10 MCHC 34 % (30-34) 11/24/17 13:10 RDW 15.5 % (13.2-15.2) H 11/24/17 13:10 Plt Count 183 K/mm3 (140-440) 11/24/17 13:10 Lymph % (Auto) 14.5 % (13.4-35.0) 11/24/17 13:10 [place] % (Auto) 4.2 % (0.0-7.3) 11/24/17 13:10 Eos % (Auto) 1.0 % (0.0-4.3) 11/24/17 13:10 Baso % (Auto) 0.3 % (0.0-1.8) 11/24/17 13:10 Lymph # 0.9 K/mm3 (1.2-5.4) L 11/24/17 13:10 [place] # 0.3 K/mm3 (0.0-0.8) 11/24/17 13:10 Eos # 0.1 K/mm3 (0.0-0.4) 11/24/17 13:10 Baso # 0.0 K/mm3 (0.0-0.1) 11/24/17 13:10 Seg Neutrophils % 80.0 % (40.0-70.0) H 11/24/17 13:10 Seg Neutrophils # 5.0 K/mm3 (1.8-7.7) 11/24/17 13:10 Sodium 146 mmol/L (137-145) H 11/24/17 13:10 Potassium 3.6 mmol/L (3.6-5.0) 11/24/17 13:10 Chloride 100.4 mmol/L (98-107) 11/24/17 13:10 Carbon Dioxide 30 mmol/L (22-30) 11/24/17 13:10 Anion Gap 19 mmol/L 11/24/17 13:10 BUN 9 mg/dL (7-17) 11/24/17 13:10 Creatinine 0.7 mg/dL (0.7-1.2) 11/24/17 13:10 Estimated GFR > 60 ml/min 11/24/17 13:10 BUN/Creatinine Ratio 13 % 11/24/17 13:10 Glucose 127 mg/dL (65-100) H 11/24/17 13:10 Calcium 9.9 mg/dL (8.4-10.2) 11/24/17 13:10 Urine Color Yellow (Yellow) 11/24/17 18:52 Urine Turbidity Clear (Clear) 11/24/17 18:52 Urine pH 6.0 (5.0-7.0) 11/24/17 18:52 Ur Specific [place] 1.035 (1.003-1.030) H 11/24/17 18:52 Urine Protein 100 mg/dl mg/dL (Negative) 11/24/17 18:52 Urine Glucose (UA) Negative mg/dL (Negative) 11/24/17 18:52 Urine Ketones Trace mg/dL (Negative) 11/24/17 18:52 Urine Blood Negative (Negative) 11/24/17 18:52 Urine Nitrite Negative (Negative) 11/24/17 18:52 Ur Reducing Substances Not Reportable 11/24/17 18:52 Urine Bilirubin Negative (Negative) 11/24/17 18:52 Urine Ictotest Not Reportable 11/24/17 18:52 Urine Urobilinogen < 2.0 mg/dL (<2.0) 11/24/17 18:52 Ur Leukocyte Esterase Small (Negative) 11/24/17 18:52 Urine WBC (Auto) 3.0 /HPF (0.0-6.0) 11/24/17 18:52 Urine RBC (Auto) 2.0 /HPF (0.0-6.0) 11/24/17 18:52 U Epithel Cells (Auto) 1.0 /HPF (0-13.0) 11/24/17 18:52 Urine Bacteria (Auto) 1+ /HPF (Negative) 11/24/17 18:52 Hyaline Casts 36 /LPF 11/24/17 18:52 Urine Mucus Few /HPF 11/24/17 18:52 Salicylates 1.1 mg/dL (2.8-20.0) L 11/24/17 13:10 Urine Opiates Screen Presumptive negative 11/24/17 18:52 Urine Methadone Screen Presumptive negative 11/24/17 18:52 Acetaminophen < 5.0 ug/mL (10.0-30.0) L 11/24/17 13:10 Ur Barbiturates Screen Presumptive negative 11/24/17 18:52 Ur Phencyclidine Scrn Presumptive negative 11/24/17 18:52 Ur Amphetamines Screen Presumptive negative 11/24/17 18:52 U Benzodiazepines Scrn Presumptive negative 11/24/17 18:52 Urine Cocaine Screen Presumptive negative 11/24/17 18:52 U Marijuana (THC) Screen Presumptive negative 11/24/17 18:52 Drugs of Abuse Note Disclamer 11/24/17 18:52 Plasma/Serum Alcohol < 0.01 % (0-0.07) 11/24/17 13:10
[2017-11-29] MEDS: LOVENOX SUB-Q SCH (22:14)
[2017-11-29] MEDS: BENADRYL PO PRN (22:14)
[2017-11-30] MEDS: BROVANA NEBU IH SCH (07:47)
[2017-11-30] MEDS: PULMICORT IH SCH (07:47)
[2017-11-30] MEDS: ATIVAN PO SCH ×3 (08:30→20:01)
[2017-11-30] MEDS: ZITHROMAX PO SCH (09:31)
[2017-11-30] MEDS: TOPROL XL PO SCH (09:32)
[2017-11-30] MEDS: SODIUM CHLORIDE FLUSH SYRINGE 10 ML IV SCH (09:32)
[2017-11-30] MEDS: HALFPRIN EC PO SCH (09:33)
[2017-11-30] MEDS: ZOLOFT PO SCH (09:33)
[2017-11-30] MEDS: NORVASC PO SCH (09:33)
[2017-11-30] MEDS: DELTASONE PO SCH (09:33)
[2017-11-30] MEDS: ZOFRAN IV PRN (10:50)
--- NOTE | 2017-11-30 11:03 | Progress Note ---
Subjective - Reason for Consult Consult date: 11/30/17 Reason for consult: Psychiatry Follow-up - Chief Complaint Chief complaint: "My dog is ill" 67-year-old female the past medical history of CHF, COPD (2-3 L) , hypertension , anxiety and chronic back pain presents to the hospital complaining of continued shortness of breath and coughing. Psychiatry was consulted to see patient for SI's. Today the patient is calm and cooperative during the assessment. She stated that her dog is ill and this has made her sad. She continues to state that she is suicidal without a plan. She denies HI's and AVH' s. She denies any side effects of her medications. Mental Status Exam - Vital signs Last Vital Signs Temp 98.0 F 11/30/17 07:48 Pulse 69 11/30/17 09:32 Resp 18 11/30/17 10:00 BP 160/72 11/30/17 09:32 Pulse Ox 100 11/30/17 10:00 - Exam Narrative exam: MSE: Appearance: calm, cooperative Behavior: regular eye contact Speech: regular rate and tone Mood: "okay, but sad" Affect: congruent to mood Thought Process: circumstantial Thought Content: denies HI's and AVH's Motor Activity: ambulatory Cognition: A/O x 3 Insight: fair Judgment: variable Assessment and Plan Impression: MDD, Severe Type. Today the patient is calm and cooperative during the assessment. The patient endorsed SI's without a plan. DDx: R/O Bipolar DO Recommendation/Plan: Continue 1013 with pending placement to [facility]. Continue Zoloft 100 mg PO daily for depression and Trazodone 50 mg PO HS PRN for sleep. Discussed possible suicidality/medicaion induced krishna reference Zoloft/Trazodone with patient.
--- NOTE | 2017-11-30 13:45 | Progress Note ---
Assessment and Plan Assessment and plan: --Acute hypoxic respiratory failure; resolved Secondary to COPD exacerbation, continue oxygen nebulizer's tapering changed to oral steroids, Antibiotics, check room air O2 resting and ambulatory --Acute exacerbation of COPD; continue oxygen titrate O2 sats to more than 90%, nebulizers, , steroids, antibiotics and supportive --Hypertension; moderate control, continue current antihypertensives and when necessary medications --Suicidal ideation; denies suicidal thoughts and ideation Suicidal watch, supportive care, such following 1013 status, possible transfer to psych facility --DVT prophylaxis; add Lovenox Psych following, Disposition per psych History Interval history: Patient seen and examined medical records reviewed Patient bhakta but no new complaints Denies any suicidal thoughts or ideation Alert awake oriented 3 Vital signs reviewed Hospitalist Physical - Constitutional Vitals: Temp Pulse Resp BP Pulse Ox 98.0 F 69 18 160/72 100 11/30/17 07:48 11/30/17 09:32 11/30/17 10:00 11/30/17 09:32 11/30/17 10:00 General appearance: Present: no acute distress, well-nourished, obese - EENT Eyes: Present: PERRL, EOM intact - Neck Neck: Present: supple, normal ROM - Respiratory Respiratory effort: normal Respiratory: bilateral: diminished, negative: rales, rhonchi, wheezing - Cardiovascular Rhythm: regular Heart Sounds: Present: S1 & S2 - Extremities Extremities: no ischemia, No edema - Abdominal General gastrointestinal: soft, non-tender, non-distended, normal bowel sounds - Integumentary Integumentary: Present: clear, warm - Psychiatric Psychiatric: appropriate mood/affect, cooperative - Neurologic Neurologic: CNII-XII intact, moves all extremities Results - Labs CBC & Chem 7: 11/24/17 13:10 11/24/17 13:10 Labs: Laboratory Last Values WBC 6.3 K/mm3 (4.5-11.0) 11/24/17 13:10 RBC 4.58 M/mm3 (3.65-5.03) 11/24/17 13:10 Hgb 13.6 gm/dl (10.1-14.3) 11/24/17 13:10 Hct 40.1 % (30.3-42.9) 11/24/17 13:10 MCV 88 fl (79-97) 11/24/17 13:10 MCH 30 pg (28-32) 11/24/17 13:10 MCHC 34 % (30-34) 11/24/17 13:10 RDW 15.5 % (13.2-15.2) H 11/24/17 13:10 Plt Count 183 K/mm3 (140-440) 11/24/17 13:10 Lymph % (Auto) 14.5 % (13.4-35.0) 11/24/17 13:10 [place] % (Auto) 4.2 % (0.0-7.3) 11/24/17 13:10 Eos % (Auto) 1.0 % (0.0-4.3) 11/24/17 13:10 Baso % (Auto) 0.3 % (0.0-1.8) 11/24/17 13:10 Lymph # 0.9 K/mm3 (1.2-5.4) L 11/24/17 13:10 [place] # 0.3 K/mm3 (0.0-0.8) 11/24/17 13:10 Eos # 0.1 K/mm3 (0.0-0.4) 11/24/17 13:10 Baso # 0.0 K/mm3 (0.0-0.1) 11/24/17 13:10 Seg Neutrophils % 80.0 % (40.0-70.0) H 11/24/17 13:10 Seg Neutrophils # 5.0 K/mm3 (1.8-7.7) 11/24/17 13:10 Sodium 146 mmol/L (137-145) H 11/24/17 13:10 Potassium 3.6 mmol/L (3.6-5.0) 11/24/17 13:10 Chloride 100.4 mmol/L (98-107) 11/24/17 13:10 Carbon Dioxide 30 mmol/L (22-30) 11/24/17 13:10 Anion Gap 19 mmol/L 11/24/17 13:10 BUN 9 mg/dL (7-17) 11/24/17 13:10 Creatinine 0.7 mg/dL (0.7-1.2) 11/24/17 13:10 Estimated GFR > 60 ml/min 11/24/17 13:10 BUN/Creatinine Ratio 13 % 11/24/17 13:10 Glucose 127 mg/dL (65-100) H 11/24/17 13:10 Calcium 9.9 mg/dL (8.4-10.2) 11/24/17 13:10 Urine Color Yellow (Yellow) 11/24/17 18:52 Urine Turbidity Clear (Clear) 11/24/17 18:52 Urine pH 6.0 (5.0-7.0) 11/24/17 18:52 Ur Specific [place] 1.035 (1.003-1.030) H 11/24/17 18:52 Urine Protein 100 mg/dl mg/dL (Negative) 11/24/17 18:52 Urine Glucose (UA) Negative mg/dL (Negative) 11/24/17 18:52 Urine Ketones Trace mg/dL (Negative) 11/24/17 18:52 Urine Blood Negative (Negative) 11/24/17 18:52 Urine Nitrite Negative (Negative) 11/24/17 18:52 Ur Reducing Substances Not Reportable 11/24/17 18:52 Urine Bilirubin Negative (Negative) 11/24/17 18:52 Urine Ictotest Not Reportable 11/24/17 18:52 Urine Urobilinogen < 2.0 mg/dL (<2.0) 11/24/17 18:52 Ur Leukocyte Esterase Small (Negative) 11/24/17 18:52 Urine WBC (Auto) 3.0 /HPF (0.0-6.0) 11/24/17 18:52 Urine RBC (Auto) 2.0 /HPF (0.0-6.0) 11/24/17 18:52 U Epithel Cells (Auto) 1.0 /HPF (0-13.0) 11/24/17 18:52 Urine Bacteria (Auto) 1+ /HPF (Negative) 11/24/17 18:52 Hyaline Casts 36 /LPF 11/24/17 18:52 Urine Mucus Few /HPF 11/24/17 18:52 Salicylates 1.1 mg/dL (2.8-20.0) L 11/24/17 13:10 Urine Opiates Screen Presumptive negative 11/24/17 18:52 Urine Methadone Screen Presumptive negative 11/24/17 18:52 Acetaminophen < 5.0 ug/mL (10.0-30.0) L 11/24/17 13:10 Ur Barbiturates Screen Presumptive negative 11/24/17 18:52 Ur Phencyclidine Scrn Presumptive negative 11/24/17 18:52 Ur Amphetamines Screen Presumptive negative 11/24/17 18:52 U Benzodiazepines Scrn Presumptive negative 11/24/17 18:52 Urine Cocaine Screen Presumptive negative 11/24/17 18:52 U Marijuana (THC) Screen Presumptive negative 11/24/17 18:52 Drugs of Abuse Note Disclamer 11/24/17 18:52 Plasma/Serum Alcohol < 0.01 % (0-0.07) 11/24/17 13:10
--- NOTE | 2017-11-30 18:28 | Discharge Summary ---
Providers - Providers Date of Admission: 11/24/17 18:23 Date of discharge: 11/30/17 Attending physician: PRICE FISHER 11/26/17 09:38 Consult to Mental Health [CONS] Urgent Reason For Exam: Suicidal ideation Place consult to:: Mental Health Notified:: No answer at the provided numbers Phone number called:: [phone] Was contact made?: No Time called:: 09:40 Primary care physician: [employer] Hospitalization Condition: Stable Hospital course: --Acute hypoxic respiratory failure; resolved Secondary to COPD exacerbation, continue oxygen nebulizer's tapering changed to oral steroids, Antibiotics, check room air O2 resting and ambulatory --Acute exacerbation of COPD; continue oxygen titrate O2 sats to more than 90%, nebulizers, , steroids, antibiotics and supportive --Hypertension; moderate control, continue current antihypertensives and when necessary medications --Suicidal ideation; denies suicidal thoughts and ideation Suicidal watch, supportive care, such following 1013 status, possible transfer to psych facility --DVT prophylaxis; add Lovenox Psych following, Disposition per psych Disposition: DC/TX-65 PSY HOSP/PSY UNIT Time spent for discharge: 33 min Core Measure Documentation - Palliative Care Palliative Care/ Comfort Measures: Not Applicable - Core Measures Any of the following diagnoses?: none Exam - Constitutional Vitals: Temp Pulse Resp BP Pulse Ox 99.6 F 78 22 140/74 87 11/30/17 14:04 11/30/17 14:30 11/30/17 14:30 11/30/17 14:04 11/30/17 14:30 General appearance: Present: no acute distress, well-nourished, obese - EENT Eyes: Present: PERRL, EOM intact - Neck Neck: Present: supple, normal ROM - Respiratory Respiratory effort: normal Respiratory: negative: rales, rhonchi, wheezing - Cardiovascular Rhythm: regular Heart Sounds: Present: S1 & S2 - Extremities Extremities: no ischemia, No edema - Abdominal General gastrointestinal: Present: soft, non-tender, non-distended, normal bowel sounds - Integumentary Integumentary: Present: clear, warm - Musculoskeletal Musculoskeletal: strength equal bilaterally - Psychiatric Psychiatric: appropriate mood/affect, cooperative - Neurologic Neurologic: CNII-XII intact, moves all extremities Plan Activity: advance as tolerated, other (1013 status) Diet: low salt Additional Instructions: Discharge and transferred to inpatient [facility] facility/ [facility]. Oxygen, nasal cannula 2 L as needed Follow up with: PRIMARY CARE, [Primary Care Provider] - 7 Days
[2017-11-30 20:06] VITALS: BP 171/84
== END 2017-11-30 20:15 | DRG 291 ==
LOC: ED 12:06 → 2B-ACE 18:23
PROVIDERS: ADMIT Internal Medicine; ATTEND Internal Medicine
DX: I11.0 Hypertensive heart disease with heart failure (principal); J96.21 Acute and chronic respiratory failure with hypoxia; J44.1 Chronic obstructive pulmonary disease with (acute) exacerbation; F13.20 Sedative, hypnotic or anxiolytic dependence, uncomplicated; R45.851 Suicidal ideations; F32.2 Major depressive disorder, single episode, severe without psychotic features; I50.31 Acute diastolic (congestive) heart failure; F41.9 Anxiety disorder, unspecified; G89.29 Other chronic pain; M54.9 Dorsalgia, unspecified; M06.9 Rheumatoid arthritis, unspecified; Z87.891 Personal history of nicotine dependence; Z79.82 Long term (current) use of aspirin
CPT/HCPCS: 36415; 71046; 80048; 80307; 80320; 81001; 85025; 94640; 94760; 96374; A9270-GY; G0480; J0456; J1650; J2405; J2920; J2930; J7050; J7512

== ENCOUNTER 2017-12-28 11:52 | Emergency (ER) | payer MEDICARE ==
[2017-12-28 12:17] VITALS: BP 145/83
[2017-12-28] MEDS ORDERED: ZOFRAN ODT PO ONE (14:46)
[2017-12-28] MEDS ORDERED: ATIVAN PO ONE (14:46)
[2017-12-28] MEDS ORDERED: CATAPRES PO ONE (14:46)
--- NOTE | 2017-12-28 14:48 | Emergency Department Report ---
ED Medical Clearance HPI - General Chief complaint: Medical Clearance Stated complaint: WITHDRAWAL Time Seen by Provider: 12/28/17 14:36 Source: patient Mode of arrival: Wheelchair - History of Present Illness Initial comments: Patient is a 67-year-old black female who is complaining of withdrawal type symptoms. Patient was in a rehabilitation facility last week tried to wean herself off of Suboxone. Patient was weaned from 8 mg to milligrams. Patient states she's had several episodes of nausea vomiting she also has a cold empty feeling inside. Patient states she's had several days of pins and needle type sensation all over her body and has vomited several times as well. Home medications: Home Medications Medication Instructions Recorded Confirmed Last Taken amLODIPine [Norvasc] 10 mg PO DAILY 01/28/14 11/25/17 1 Day Ago ~01/04/16 10 Nebivolol HCl [Bystolic] 15 mg PO QDAY 11/25/15 11/25/17 1 Day Ago ~01/04/16 10 ALBUTEROL Inhaler [ProAir HFA 2 puff PO PRN 11/27/16 11/25/17 Unknown Inhaler] Buprenorphine HCl/Naloxone HCl 1 tab PO QDAY 11/27/16 11/25/17 11/24/17 17:00 [Zubsolv 1.4-0.36 mg Tablet Sl] Quetiapine Fumarate [Seroquel] 100 mg PO QHS 11/27/16 11/25/17 11/24/17 21:00 diphenhydrAMINE [Benadryl CAP] 50 mg PO QHS PRN 11/27/16 11/25/17 Unknown Previous Rx's Medication Instructions Recorded Last Taken Type Aspirin EC [Aspirin Enteric Coated 81 mg PO QDAY #30 tablet 11/30/16 Unknown Rx TAB] AtorvaSTATin [Lipitor] 40 mg PO QHS #30 tablet 11/30/16 Unknown Rx Budesoni/Formoterol 80-4.5(Nf) 2 puff IH BID 30 Days inha 11/30/16 11/24/17 17: 00 Rx [Symbicort 80-4.5 (Nf)] Metoprolol Xl [Metoprolol 100 mg PO QDAY #30 tablet 12/03/16 Unknown Rx SUCCINATE ER TAB] Ondansetron [Zofran TAB] 4 mg PO Q8HR PRN #30 tablet 12/03/16 Unknown Rx amLODIPine [Norvasc] 10 mg PO DAILY #30 tablet 12/03/16 11/24/17 10:00 Rx Doxycycline [Vibramycin CAP] 100 mg PO Q12HR #14 capsule 11/22/17 Unknown Rx HYDROcodone/APAP 5-325 [[place] 1 each PO Q4HR PRN #12 tablet 11/22/17 Unknown Rx 5-325 mg TAB] predniSONE [Deltasone] 20 mg PO QDAY #5 tab 11/22/17 Unknown Rx Sertraline [Zoloft] 100 mg PO QDAY tablet 11/30/17 Unknown Rx traZODone [Desyrel] 50 mg PO QHS PRN tablet 11/30/17 Unknown Rx ALPRAZolam [Xanax TAB] 0.25 mg PO TID PRN #7 tab 12/28/17 Unknown Rx Ondansetron [Zofran ODT TAB] 4 mg PO ONCE #10 tab.rapdis 12/28/17 Unknown Rx cloNIDine [Catapres] 0.1 mg PO BID #6 tablet 12/28/17 Unknown Rx Allergies/Adverse reactions: Allergies Allergy/AdvReac Type Severity Reaction Status Date / Time No Known Allergies Allergy Verified 12/28/17 12:14 ED Review of Systems ROS: Stated complaint: WITHDRAWAL Other details as noted in HPI Comment: All other systems reviewed and negative ED Past Medical Hx - Past Medical History Hx Hypertension: Yes Hx Congestive Heart Failure: Yes Hx Arthritis: Yes (rheumatoid) Hx COPD: Yes Additional medical history: chronic back pain - Surgical History Additional Surgical History: hernia repair and lower back - Social History Smoking Status: Never Smoker Substance Use Type: None - Medications Home Medications: Home Medications Medication Instructions Recorded Confirmed Last Taken Type amLODIPine [Norvasc] 10 mg PO DAILY 01/28/14 11/25/17 1 Day Ago History ~01/04/16 10 Nebivolol HCl [Bystolic] 15 mg PO QDAY 11/25/15 11/25/17 1 Day Ago History ~01/04/16 10 ALBUTEROL Inhaler [ProAir HFA 2 puff PO PRN 11/27/16 11/25/17 Unknown History Inhaler] Buprenorphine HCl/Naloxone HCl 1 tab PO QDAY 11/27/16 11/25/17 11/24/17 17:00 History [Zubsolv 1.4-0.36 mg Tablet Sl] Quetiapine Fumarate [Seroquel] 100 mg PO QHS 11/27/16 11/25/17 11/24/17 21:00 History diphenhydrAMINE [Benadryl CAP] 50 mg PO QHS PRN 11/27/16 11/25/17 Unknown History Aspirin EC [Aspirin Enteric Coated 81 mg PO QDAY #30 tablet 11/30/16 11/25/17 Unknown Rx TAB] AtorvaSTATin [Lipitor] 40 mg PO QHS #30 tablet 11/30/16 11/25/17 Unknown Rx Budesoni/Formoterol 80-4.5(Nf) 2 puff IH BID 30 Days inha 11/30/16 11/25/17 17:00 Rx [Symbicort 80-4.5 (Nf)] Metoprolol Xl [Metoprolol 100 mg PO QDAY #30 tablet 12/03/16 11/25/17 Unknown Rx SUCCINATE ER TAB] Ondansetron [Zofran TAB] 4 mg PO Q8HR PRN #30 tablet 12/03/16 11/25/17 Unknown Rx amLODIPine [Norvasc] 10 mg PO DAILY #30 tablet 12/03/16 11/25/17 11/24/17 10:00 Rx Doxycycline [Vibramycin CAP] 100 mg PO Q12HR #14 capsule 11/22/17 11/25/17 Unknown Rx HYDROcodone/APAP 5-325 [[place] 1 each PO Q4HR PRN #12 tablet 11/22/17 11/25/17 Unknown Rx 5-325 mg TAB] predniSONE [Deltasone] 20 mg PO QDAY #5 tab 11/22/17 11/25/17 Unknown Rx Sertraline [Zoloft] 100 mg PO QDAY tablet 11/30/17 Unknown Rx traZODone [Desyrel] 50 mg PO QHS PRN tablet 11/30/17 Unknown Rx ALPRAZolam [Xanax TAB] 0.25 mg PO TID PRN #7 tab 12/28/17 Unknown Rx Ondansetron [Zofran ODT TAB] 4 mg PO ONCE #10 tab.rapdis 12/28/17 Unknown Rx cloNIDine [Catapres] 0.1 mg PO BID #6 tablet 12/28/17 Unknown Rx ED Physical Exam - General Limitations: No Limitations General appearance: alert, in no apparent distress - Head Head exam: Present: atraumatic, normocephalic - Eye Eye exam: Present: normal appearance - ENT ENT exam: Present: mucous membranes moist - Neck Neck exam: Present: normal inspection - Respiratory Respiratory exam: Present: normal lung sounds bilaterally. Absent: respiratory distress, wheezes, rales, rhonchi - Cardiovascular Cardiovascular Exam: Present: regular rate, normal rhythm. Absent: systolic murmur, diastolic murmur, rubs, gallop - GI/Abdominal GI/Abdominal exam: Present: soft, normal bowel sounds. Absent: distended, tenderness, guarding, rebound - Extremities Exam Extremities exam: Present: normal inspection - Back Exam Back exam: Present: normal inspection - Neurological Exam Neurological exam: Present: alert, oriented X3 - Psychiatric Psychiatric exam: Present: normal affect, normal mood - Skin Skin exam: Present: warm, dry, intact, normal color. Absent: rash ED Course Vital Signs 12/28/17 12:14 Temperature 98.8 F Pulse Rate 70 Respiratory 18 Rate Blood Pressure 145/83 O2 Sat by Pulse 99 Oximetry ED Medical Decision Making - Medical Decision Making given meds for symptomatic relief and will be discharged home. ED Disposition Clinical Impression: Opiate withdrawal Disposition: DC-01 TO HOME OR SELFCARE Is pt being admited?: No Does the pt Need Aspirin: No Condition: Stable Instructions: Opioid Withdrawal (ED) Prescriptions: ALPRAZolam [Xanax TAB] 0.25 mg PO TID PRN #7 tab PRN Reason: Anxiety cloNIDine [Catapres] 0.1 mg PO BID #6 tablet Ondansetron [Zofran ODT TAB] 4 mg PO ONCE #10 tab.rapdis Referrals: PRIMARY CARE, [Primary Care Provider] - 3-5 Days
== END 2017-12-28 15:41 | disposition home or self-care (01) ==
LOC: ED 11:52
DX: F11.23 Opioid dependence with withdrawal (principal); J44.9 Chronic obstructive pulmonary disease, unspecified; M19.90 Unspecified osteoarthritis, unspecified site; I11.0 Hypertensive heart disease with heart failure; I50.9 Heart failure, unspecified
CPT/HCPCS: 99282; Q0162

== ENCOUNTER 2018-03-03 16:08 | Emergency (ER) | payer MEDICARE ==
[2018-03-03] MEDS ORDERED: NACL 0.9% 500 ML 500 ML IV ONE (16:51)
[2018-03-03] MEDS ORDERED: SUBLIMAZE IV ONE (16:51)
--- NOTE | 2018-03-03 16:52 | Emergency Department Report ---
ED General Adult HPI - General Chief complaint: Pain General Stated complaint: PAIN Time Seen by Provider: 03/03/18 16:43 Source: patient, EMS (ems notes not available at time of chart dictation), RN notes reviewed, old records reviewed Mode of arrival: Stretcher Limitations: Physical Limitation - History of Present Illness Initial comments: This is a 67-year-old female. She has a past medical history of COPD, hypertension, chronic back pain, narcotic dependence and rheumatoid arthritis. Patient presents to the ER complaint of generalized weakness, diffuse arthralgias, fatigue, and "feeling empty inside." She was recently admitted to [facility] for reported pneumonia/COPD. to me, the patient makes no complaint about requesting Suboxone. Her pain is all over, increases with palpation and decreases with rest. To me, she denies chest pain, abdominal pain, and urinary symptoms. Her pain is in her joints in her back, all of it is acute on chronic. -: Gradual Location: buttocks, left, right, upper extremity, lower extremity Quality: aching Consistency: constant Improves with: medication, rest Worsens with: movement Associated Symptoms: cough, loss of appetite, malaise, shortness of breath ( chronic), weakness (chronic). denies: confusion, chest pain, diaphoresis, fever /chills, headaches, nausea/vomiting, rash, seizure - Related Data Home Medications Medication Instructions Recorded Confirmed Last Taken amLODIPine [Norvasc] 10 mg PO DAILY 01/28/14 11/25/17 1 Day Ago ~01/04/16 10 Nebivolol HCl [Bystolic] 15 mg PO QDAY 11/25/15 11/25/17 1 Day Ago ~01/04/16 10 ALBUTEROL Inhaler [ProAir HFA 2 puff PO PRN 11/27/16 11/25/17 Unknown Inhaler] Buprenorphine HCl/Naloxone HCl 1 tab PO QDAY 11/27/16 11/25/17 11/24/17 17:00 [Zubsolv 1.4-0.36 mg Tablet Sl] Quetiapine Fumarate [Seroquel] 100 mg PO QHS 11/27/16 11/25/17 11/24/17 21:00 diphenhydrAMINE [Benadryl CAP] 50 mg PO QHS PRN 11/27/16 11/25/17 Unknown Previous Rx's Medication Instructions Recorded Last Taken Type Aspirin EC [Aspirin Enteric Coated 81 mg PO QDAY #30 tablet 11/30/16 Unknown Rx TAB] AtorvaSTATin [Lipitor] 40 mg PO QHS #30 tablet 11/30/16 Unknown Rx Budesoni/Formoterol 80-4.5(Nf) 2 puff IH BID 30 Days inha 11/30/16 11/24/17 17: 00 Rx [Symbicort 80-4.5 (Nf)] Metoprolol Xl [Metoprolol 100 mg PO QDAY #30 tablet 12/03/16 Unknown Rx SUCCINATE ER TAB] Ondansetron [Zofran TAB] 4 mg PO Q8HR PRN #30 tablet 12/03/16 Unknown Rx amLODIPine [Norvasc] 10 mg PO DAILY #30 tablet 12/03/16 11/24/17 10:00 Rx Doxycycline [Vibramycin CAP] 100 mg PO Q12HR #14 capsule 11/22/17 Unknown Rx HYDROcodone/APAP 5-325 [[place] 1 each PO Q4HR PRN #12 tablet 11/22/17 Unknown Rx 5-325 mg TAB] predniSONE [Deltasone] 20 mg PO QDAY #5 tab 11/22/17 Unknown Rx Sertraline [Zoloft] 100 mg PO QDAY tablet 11/30/17 Unknown Rx traZODone [Desyrel] 50 mg PO QHS PRN tablet 11/30/17 Unknown Rx ALPRAZolam [Xanax TAB] 0.25 mg PO TID PRN #7 tab 12/28/17 Unknown Rx Ondansetron [Zofran ODT TAB] 4 mg PO ONCE #10 tab.rapdis 12/28/17 Unknown Rx cloNIDine [Catapres] 0.1 mg PO BID #6 tablet 12/28/17 Unknown Rx Acetaminophen [Tylenol Arthritis] 650 mg PO Q6HR PRN #30 tablet.er 03/03/18 Unknown Rx Albuterol Sulfate [Proair 90 mcg IH Q4HR PRN #2 aer.pow.ba 03/03/18 Unknown Rx Respiclick] Ibuprofen [Motrin] 600 mg PO Q8H PRN #30 tablet 03/03/18 Unknown Rx Allergies Allergy/AdvReac Type Severity Reaction Status Date / Time No Known Allergies Allergy Verified 12/28/17 12:14 ED Review of Systems ROS: Stated complaint: PAIN Other details as noted in HPI Constitutional: malaise Eyes: denies: eye discharge Respiratory: shortness of breath Cardiovascular: denies: chest pain Gastrointestinal: denies: abdominal pain Genitourinary: denies: dysuria Musculoskeletal: back pain, arthralgia, myalgia Skin: denies: lesions Neurological: weakness Psychiatric: anxiety ED Past Medical Hx - Past Medical History Hx Hypertension: Yes Hx Congestive Heart Failure: Yes Hx Arthritis: Yes (rheumatoid) Hx COPD: Yes Additional medical history: chronic back pain - Surgical History Additional Surgical History: hernia repair and lower back - Social History Smoking Status: Former Smoker Substance Use Type: None - Medications Home Medications: Home Medications Medication Instructions Recorded Confirmed Last Taken Type amLODIPine [Norvasc] 10 mg PO DAILY 01/28/14 11/25/17 1 Day Ago History ~01/04/16 10 Nebivolol HCl [Bystolic] 15 mg PO QDAY 11/25/15 11/25/17 1 Day Ago History ~01/04/16 10 ALBUTEROL Inhaler [ProAir HFA 2 puff PO PRN 11/27/16 11/25/17 Unknown History Inhaler] Buprenorphine HCl/Naloxone HCl 1 tab PO QDAY 11/27/16 11/25/17 11/24/17 17:00 History [Zubsolv 1.4-0.36 mg Tablet Sl] Quetiapine Fumarate [Seroquel] 100 mg PO QHS 11/27/16 11/25/17 11/24/17 21:00 History diphenhydrAMINE [Benadryl CAP] 50 mg PO QHS PRN 11/27/16 11/25/17 Unknown History Aspirin EC [Aspirin Enteric Coated 81 mg PO QDAY #30 tablet 11/30/16 11/25/17 Unknown Rx TAB] AtorvaSTATin [Lipitor] 40 mg PO QHS #30 tablet 11/30/16 11/25/17 Unknown Rx Budesoni/Formoterol 80-4.5(Nf) 2 puff IH BID 30 Days inha 11/30/16 11/25/17 17:00 Rx [Symbicort 80-4.5 (Nf)] Metoprolol Xl [Metoprolol 100 mg PO QDAY #30 tablet 12/03/16 11/25/17 Unknown Rx SUCCINATE ER TAB] Ondansetron [Zofran TAB] 4 mg PO Q8HR PRN #30 tablet 12/03/16 11/25/17 Unknown Rx amLODIPine [Norvasc] 10 mg PO DAILY #30 tablet 12/03/16 11/25/17 11/24/17 10:00 Rx Doxycycline [Vibramycin CAP] 100 mg PO Q12HR #14 capsule 11/22/17 11/25/17 Unknown Rx HYDROcodone/APAP 5-325 [[place] 1 each PO Q4HR PRN #12 tablet 11/22/17 11/25/17 Unknown Rx 5-325 mg TAB] predniSONE [Deltasone] 20 mg PO QDAY #5 tab 11/22/17 11/25/17 Unknown Rx Sertraline [Zoloft] 100 mg PO QDAY tablet 11/30/17 Unknown Rx traZODone [Desyrel] 50 mg PO QHS PRN tablet 11/30/17 Unknown Rx ALPRAZolam [Xanax TAB] 0.25 mg PO TID PRN #7 tab 12/28/17 Unknown Rx Ondansetron [Zofran ODT TAB] 4 mg PO ONCE #10 tab.rapdis 12/28/17 Unknown Rx cloNIDine [Catapres] 0.1 mg PO BID #6 tablet 12/28/17 Unknown Rx Acetaminophen [Tylenol Arthritis] 650 mg PO Q6HR PRN #30 tablet.er 03/03/18 Unknown Rx Albuterol Sulfate [Proair 90 mcg IH Q4HR PRN #2 aer.pow.ba 03/03/18 Unknown Rx Respiclick] Ibuprofen [Motrin] 600 mg PO Q8H PRN #30 tablet 03/03/18 Unknown Rx ED Physical Exam - General Limitations: No Limitations General appearance: alert, anxious, in distress - Head Head exam: Present: atraumatic, normocephalic - Eye Eye exam: Present: normal appearance, EOMI. Absent: nystagmus - ENT ENT exam: Present: normal exam, normal orophraynx, mucous membranes moist, normal external ear exam - Neck Neck exam: Present: normal inspection, full ROM - Respiratory Respiratory exam: Present: decreased breath sounds. Absent: respiratory distress - Cardiovascular Cardiovascular Exam: Present: normal rhythm, tachycardia, normal heart sounds. Absent: systolic murmur, diastolic murmur, rubs, gallop - GI/Abdominal GI/Abdominal exam: Present: soft. Absent: distended, tenderness, guarding, rebound, rigid, pulsatile mass - Extremities Exam Extremities exam: Present: normal inspection, full ROM, tenderness (there is no redness, pus or streaking. The compartments are soft. However the patient has diffuse reproducible muscular tenderness in the upper, lower extremities), normal capillary refill, other (2+ pulses noted in the bilateral upper, lower extremities. Compartments soft. No long bony tenderness. The pelvis is stable.). Absent: pedal edema, joint swelling, calf tenderness - Back Exam Back exam: Present: normal inspection, full ROM, tenderness, paraspinal tenderness - Neurological Exam Neurological exam: Present: alert, oriented X3, CN II-XII intact, other ( Extraocular movements intact. Tongue midline. No facial droop. Facial sensation intact to light touch in the V1, V2, V3 distribution bilaterally. 5 and 5 strength in 4 extremities.. Sensation is intact to light touch in 4 extremities.). Absent: motor sensory deficit - Psychiatric Psychiatric exam: Present: anxious - Skin Skin exam: Present: warm, dry, intact, normal color. Absent: rash ED Course Vital Signs 03/03/18 03/03/18 03/03/18 16:30 16:36 17:00 Temperature 98 F Pulse Rate 106 H 92 H Respiratory 20 12 Rate Blood Pressure 140/89 140/90 O2 Sat by Pulse 97 97 98 Oximetry 03/03/18 03/03/18 03/03/18 17:33 17:47 18:01 Temperature 99.8 F H Pulse Rate 85 Respiratory 18 18 17 Rate Blood Pressure 141/79 O2 Sat by Pulse 98 Oximetry 03/03/18 03/03/18 03/03/18 19:01 20:01 21:01 Temperature Pulse Rate 92 H 88 86 Respiratory 11 L 19 13 Rate Blood Pressure 176/91 147/84 147/84 O2 Sat by Pulse 99 99 99 Oximetry 03/03/18 22:01 Temperature Pulse Rate 88 Respiratory 14 Rate Blood Pressure 147/84 O2 Sat by Pulse 98 Oximetry - Reevaluation(s) Reevaluation #1: 03/03/18 19:[address] Travis Jiang to follow up on ua. if suggestive of uti would treat with macrobid. if negative would discharge ED Medical Decision Making - Lab Data Result diagrams: 03/03/18 17:18 03/03/18 17:18 Vital Signs 03/03/18 03/03/18 03/03/18 16:30 16:36 17:00 Temperature 98 F Pulse Rate 106 H 92 H Respiratory 20 12 Rate Blood Pressure 140/89 140/90 O2 Sat by Pulse 97 97 98 Oximetry 03/03/18 03/03/18 03/03/18 17:33 17:47 18:01 Temperature 99.8 F H Pulse Rate 85 Respiratory 18 18 17 Rate Blood Pressure 141/79 O2 Sat by Pulse 98 Oximetry Lab Results 03/03/18 03/03/18 03/03/18 Range/Units 17:18 17:18 17:18 WBC 10.4 (4.5-11.0) K/mm3 RBC 4.74 (3.65-5.03) M/mm3 Hgb 13.9 (10.1-14.3) gm/dl Hct 42.2 (30.3-42.9) % MCV 89 (79-97) fl MCH 29 (28-32) pg MCHC 33 (30-34) % RDW 16.2 H (13.2-15.2) % Plt Count 245 (140-440) K/mm3 PT 12.6 (12.2-14.9) Sec. INR 0.90 (0.87-1.13) Sodium 140 (137-145) mmol/L Potassium 4.0 (3.6-5.0) mmol/L Chloride 95.1 L (98-107) mmol/L Carbon Dioxide 30 (22-30) mmol/L Anion Gap 19 mmol/L BUN 10 (7-17) mg/dL Creatinine 0.9 (0.7-1.2) mg/dL Estimated GFR > 60 ml/min BUN/Creatinine Ratio 11 % Glucose 108 H (65-100) mg/dL Calcium 10.1 (8.4-10.2) mg/dL Magnesium 2.10 (1.7-2.3) mg/dL Total Creatine Kinase 221 H (30-135) units/L - EKG Data EKG shows normal: sinus rhythm Rate: tachycardia - EKG Data Interpretation: unchanged when compared t 03/03/18 18:59 Tachycardic rhythm, 102 bpm, normal axis, poor R-wave progression, atrial enlargement, not a STEMI, QTc prolonged period - Radiology Data Radiology results: report reviewed, image reviewed X-ray of the chest was negative for acute disease - Medical Decision Making Differential diagnosis, including but not limited to: Narcotic dependence, chronic COPD, chronic arthritis, chronic rheumatoid arthritis, pneumonia, urinary tract infection Assessment and plan: A 67-year-old female with a primary complaint of diffuse arthritis and pain. Patient is narcotic dependent by history. Her symptoms were improved with IV fentanyl and normal saline, and her tachycardia resolved. Her laboratory studies were unremarkable, I did x-ray the chest is unremarkable. A urinalysis is pending at this time. At this point in time to actively speaking, there does not appear to be an emergent condition at this time. If her urinalysis corroborates or supports a urinary tract infection, she will be medicated appropriately with probable Macrobid. Critical care attestation.: If time is entered above; I have spent that time in minutes in the direct care of this critically ill patient, excluding procedure time. ED Disposition Clinical Impression: Chronic low back pain, Anxiety, Polyarthritis Disposition: TO HOME OR SELFCARE Is pt being admited?: No Does the pt Need Aspirin: No Condition: Stable Instructions: Rheumatoid Arthritis (ED) Additional Instructions: Take the medications as needed/directed. Continue current outpatient medications. Follow up with the primary care doctor for your chronic medical issues. Follow up with a pain specialist for chronic arthritis and pain. Dr. Davis is a local pain specialist. Follow up with a pain physician within the next month. Dr. Meyers is a local primary care doctor. Follow up with the primary care doctor within the next 2 weeks. Return to the ER right away with new pain, worsened pain, migration of pain, projectile vomiting, change in mental status, confusion, inability to tolerate liquid feeds. Prescriptions: Acetaminophen [Tylenol Arthritis] 650 mg PO Q6HR PRN #30 tablet.er PRN Reason: Pain Albuterol Sulfate [Proair Respiclick] 90 mcg IH Q4HR PRN #2 aer.pow.ba PRN Reason: Wheezing Ibuprofen [Motrin] 600 mg PO Q8H PRN #30 tablet PRN Reason: Pain Referrals: PRIMARY MD KAVITA [Primary Care Provider] - 3-5 Days BRIGIDO MEYERS MD [Staff Physician] - 3-5 Days [facility] [Provider Group] - 3-5 Days MARCELO LAI MD [Staff Physician] - 3-5 Days
[2018-03-03] MEDS ORDERED: NACL 0.9% 1000 ML 1,000 ML ONE (17:11)
[2018-03-03 17:38] LABS: Hematocrit 42.2 % (30.3-42.9); Hemoglobin 13.9 gm/dl (10.1-14.3); Mean Corpuscular HGB Conc 33 % (30-34); Mean Corpuscular Hemoglobin 29 pg (28-32); Mean Corpuscular Volume 89 fl (79-97); Platelet Count 245 K/mm3 (140-440); Red Blood Count 4.74 M/mm3 (3.65-5.03); Red Cell Distribution Width 16.2 % (13.2-15.2)
[2018-03-03 17:45] LABS: INR 0.9 (0.87-1.13)
[2018-03-03 17:47] LABS: BUN/Creatinine Ratio 11; Blood Urea Nitrogen 10 mg/dL (7-17); Calcium 10.1 mg/dL (8.4-10.2); Hemolysis Index 35
--- NOTE | 2018-03-03 18:26 | XRay Report ---
FINAL REPORT EXAM: XR CHEST 1V AP HISTORY: weakness hx of pneumonia TECHNIQUE: upright single view chest PRIORS: Comparison is dated November 24, 2017 FINDINGS: Cardiac and mediastinal contours are unremarkable. No focal pulmonary infiltrate is identified. No pleural fluid collection seen. Pulmonary vasculature is unremarkable. No acute change from prior exam IMPRESSION: No acute abnormality identified in the chest
[2018-03-03] MEDS ORDERED: ZOFRAN IV ONE (19:10)
[2018-03-03] MEDS ORDERED: TORADOL IV ONE (19:10)
[2018-03-03 20:41] VITALS: BP 147/84
[2018-03-03 22:15] LABS: Bilirubin,Urine NEG (Negative); Blood,Urine NEG (Negative); Color,Urine Yellow (Yellow); Granular Casts,Urine 6 /LPF; Hyaline Casts,Urine 4 /LPF; Mucus,Urine 1+ /HPF
== END 2018-03-03 23:53 | disposition home or self-care (01) ==
LOC: ED 16:08
DX: F41.9 Anxiety disorder, unspecified (principal); M54.5 Low back pain; G89.29 Other chronic pain; M13.0 Polyarthritis, unspecified; I10 Essential (primary) hypertension; M06.9 Rheumatoid arthritis, unspecified; Z87.891 Personal history of nicotine dependence
CPT/HCPCS: 36415; 71045; 80048; 81001; 82550; 83735; 85027; 85610; 87086; 93005; 93010; 96374; 96375; 99284; J1885; J2405; J3010; J7030; 96361

== ENCOUNTER 2018-04-26 14:45 | Emergency (ER) | payer MEDICARE ==
--- NOTE | 2018-04-26 15:24 | Emergency Department Report ---
ED General Adult HPI - General Chief complaint: Chest Pain Stated complaint: SOB/CHEST PAIN Time Seen by Provider: 04/26/18 15:22 Source: patient, EMS Mode of arrival: Wheelchair Limitations: No Limitations - History of Present Illness Initial comments: Patient is a 67-year-old female who presents with COPD exacerbation patient states that she has been short of breath for the last couple days. Patient also states that she is also having some hip pain as a 5 out of 10 and it is an achy type of pain walking makes the pain worse and nothing makes it better. Patient states that she used to smoke but she no longer smokes anymore. Patient states that she is having no chest pain but she is going to a rehabilitation facility and she needs medical clearance. Severity scale (0 -10): 10 - Related Data Home Medications Medication Instructions Recorded Confirmed Last Taken ALBUTEROL Inhaler (OR & NICU) 2 puff PO PRN 11/27/16 03/10/18 Unknown [ProAir HFA Inhaler] Buprenorphine HCl/Naloxone HCl 1 tab PO QDAY 11/27/16 03/10/18 11/24/17 17:00 [Zubsolv 1.4-0.36 mg Tablet Sl] Quetiapine Fumarate [Seroquel] 100 mg PO QHS 11/27/16 03/10/18 11/24/17 21:00 Previous Rx's Medication Instructions Recorded Last Taken Type Aspirin EC [Aspirin Enteric Coated 81 mg PO QDAY #30 tablet 11/30/16 Unknown Rx TAB] Budesoni/Formoterol 80-4.5(Nf) 2 puff IH BID 30 Days inha 11/30/16 11/24/17 17: 00 Rx [Symbicort 80-4.5 (Nf)] Sertraline [Zoloft] 100 mg PO QDAY tablet 11/30/17 Unknown Rx Acetaminophen [Tylenol Arthritis] 650 mg PO Q6HR PRN #30 tablet.er 03/03/18 Unknown Rx Albuterol Sulfate [Proair 90 mcg IH Q4HR PRN #2 aer.pow.ba 03/03/18 Unknown Rx Respiclick] ALPRAZolam [Xanax TAB] 0.25 mg PO TID PRN #7 tab 03/15/18 Unknown Rx AtorvaSTATin [Lipitor] 20 mg PO QHS #30 tablet 03/15/18 Unknown Rx Diltiazem HCl [Diltiazem 24Hr Cd] 240 mg PO DAILY #30 cap.er.24h 03/15/18 Unknown Rx cloNIDine [Catapres] 0.1 mg PO QDAY #30 tablet 03/15/18 Unknown Rx LORazepam [Ativan] 0.5 mg PO Q4H PRN #7 tablet 03/16/18 Unknown Rx oxyCODONE [Roxicodone TAB] 30 mg PO Q6H PRN #30 tablet 03/16/18 Unknown Rx oxyCODONE /ACETAMINOPHEN [Percocet 1 tab PO Q6H PRN #7 tablet 03/17/18 Unknown Rx 5/325 mg] hydrOXYzine HCL [Atarax] 50 mg PO Q6HR PRN #30 tablet 04/26/18 Unknown Rx predniSONE [Deltasone] 20 mg PO QDAY #10 tab 04/26/18 Unknown Rx Allergies Allergy/AdvReac Type Severity Reaction Status Date / Time No Known Allergies Allergy Verified 12/28/17 12:14 ED Review of Systems ROS: Stated complaint: SOB/CHEST PAIN Other details as noted in HPI Constitutional: denies: chills, fever Eyes: denies: eye pain, eye discharge, vision change ENT: denies: ear pain, throat pain Respiratory: denies: cough, shortness of breath, wheezing Cardiovascular: chest pain. denies: palpitations Endocrine: no symptoms reported Gastrointestinal: abdominal pain. denies: nausea, diarrhea Genitourinary: denies: urgency, dysuria, discharge Musculoskeletal: denies: back pain, joint swelling, arthralgia Skin: denies: rash, lesions Neurological: denies: headache, weakness, paresthesias Psychiatric: denies: anxiety, depression Hematological/Lymphatic: denies: easy bleeding, easy bruising ED Past Medical Hx - Past Medical History Hx Hypertension: Yes Hx Congestive Heart Failure: Yes Hx Arthritis: Yes (rheumatoid) Hx COPD: Yes Additional medical history: chronic back pain - Surgical History Additional Surgical History: hernia repair and lower back/ cycst removal - Social History Smoking Status: Former Smoker Substance Use Type: None - Medications Home Medications: Home Medications Medication Instructions Recorded Confirmed Last Taken Type ALBUTEROL Inhaler (OR & NICU) 2 puff PO PRN 11/27/16 03/10/18 Unknown History [ProAir HFA Inhaler] Buprenorphine HCl/Naloxone HCl 1 tab PO QDAY 11/27/16 03/10/18 11/24/17 17:00 History [Zubsolv 1.4-0.36 mg Tablet Sl] Quetiapine Fumarate [Seroquel] 100 mg PO QHS 11/27/16 03/10/18 11/24/17 21:00 History Aspirin EC [Aspirin Enteric Coated 81 mg PO QDAY #30 tablet 11/30/16 03/10/18 Unknown Rx TAB] Budesoni/Formoterol 80-4.5(Nf) 2 puff IH BID 30 Days inha 11/30/16 03/10/18 17:00 Rx [Symbicort 80-4.5 (Nf)] Sertraline [Zoloft] 100 mg PO QDAY tablet 11/30/17 03/10/18 Unknown Rx Acetaminophen [Tylenol Arthritis] 650 mg PO Q6HR PRN #30 tablet.er 03/03/18 Unknown Rx Albuterol Sulfate [Proair 90 mcg IH Q4HR PRN #2 aer.pow.ba 03/03/18 03/10/18 Unknown Rx Respiclick] ALPRAZolam [Xanax TAB] 0.25 mg PO TID PRN #7 tab 03/15/18 Unknown Rx AtorvaSTATin [Lipitor] 20 mg PO QHS #30 tablet 03/15/18 Unknown Rx Diltiazem HCl [Diltiazem 24Hr Cd] 240 mg PO DAILY #30 cap.er.24h 03/15/18 Unknown Rx cloNIDine [Catapres] 0.1 mg PO QDAY #30 tablet 03/15/18 Unknown Rx LORazepam [Ativan] 0.5 mg PO Q4H PRN #7 tablet 03/16/18 Unknown Rx oxyCODONE [Roxicodone TAB] 30 mg PO Q6H PRN #30 tablet 03/16/18 Unknown Rx oxyCODONE /ACETAMINOPHEN [Percocet 1 tab PO Q6H PRN #7 tablet 03/17/18 Unknown Rx 5/325 mg] hydrOXYzine HCL [Atarax] 50 mg PO Q6HR PRN #30 tablet 04/26/18 Unknown Rx predniSONE [Deltasone] 20 mg PO QDAY #10 tab 04/26/18 Unknown Rx ED Physical Exam - General Limitations: No Limitations General appearance: alert, in no apparent distress - Head Head exam: Present: atraumatic, normocephalic - Eye Eye exam: Present: normal appearance - ENT ENT exam: Present: mucous membranes moist - Neck Neck exam: Present: normal inspection - Respiratory Respiratory exam: Present: wheezes. Absent: respiratory distress - Cardiovascular Cardiovascular Exam: Present: regular rate, normal rhythm. Absent: systolic murmur, diastolic murmur, rubs, gallop - GI/Abdominal GI/Abdominal exam: Present: soft, normal bowel sounds - Extremities Exam Extremities exam: Present: normal inspection - Back Exam Back exam: Present: normal inspection - Neurological Exam Neurological exam: Present: alert, oriented X3 - Psychiatric Psychiatric exam: Present: normal affect, normal mood - Skin Skin exam: Present: warm, dry, intact, normal color. Absent: rash ED Course Vital Signs 04/26/18 04/26/18 04/26/18 15:23 15:30 15:46 Pulse Rate 115 H 105 H Respiratory 15 23 10 L Rate Blood Pressure 149/71 121/73 O2 Sat by Pulse 100 99 Oximetry 04/26/18 04/26/18 04/26/18 16:00 16:15 16:30 Pulse Rate 100 H 93 H 128 H Respiratory 10 L 16 28 H Rate Blood Pressure 121/73 121/82 149/71 O2 Sat by Pulse 100 99 Oximetry 04/26/18 04/26/18 04/26/18 16:46 17:00 17:16 Pulse Rate 102 H 101 H 92 H Respiratory 16 12 18 Rate Blood Pressure 149/71 149/71 149/71 O2 Sat by Pulse Oximetry 04/26/18 04/26/18 17:30 17:55 Pulse Rate 102 H Respiratory 18 16 Rate Blood Pressure 149/71 O2 Sat by Pulse 100 Oximetry ED Medical Decision Making - Lab Data Result diagrams: 04/26/18 16:01 04/26/18 16:01 Lab Results 04/26/18 04/26/18 Range/Units 16:01 16:01 WBC 6.8 (4.5-11.0) K/mm3 RBC 4.37 (3.65-5.03) M/mm3 Hgb 13.0 (10.1-14.3) gm/dl Hct 38.8 (30.3-42.9) % MCV 89 (79-97) fl MCH 30 (28-32) pg MCHC 34 (30-34) % RDW 16.1 H (13.2-15.2) % Plt Count 215 (140-440) K/mm3 Lymph % (Auto) 18.2 (13.4-35.0) % [place] % (Auto) 7.1 (0.0-7.3) % Eos % (Auto) 1.3 (0.0-4.3) % Baso % (Auto) 0.5 (0.0-1.8) % Lymph # 1.2 (1.2-5.4) K/mm3 [place] # 0.5 (0.0-0.8) K/mm3 Eos # 0.1 (0.0-0.4) K/mm3 Baso # 0.0 (0.0-0.1) K/mm3 Seg Neutrophils % 72.9 H (40.0-70.0) % Seg Neutrophils # 5.0 (1.8-7.7) K/mm3 Sodium 144 (137-145) mmol/L Potassium 3.7 (3.6-5.0) mmol/L Chloride 101.4 (98-107) mmol/L Carbon Dioxide 27 (22-30) mmol/L Anion Gap 19 mmol/L BUN 14 (7-17) mg/dL Creatinine 1.1 (0.7-1.2) mg/dL Estimated GFR 60 ml/min BUN/Creatinine Ratio 13 % Glucose 109 H (65-100) mg/dL Calcium 9.6 (8.4-10.2) mg/dL Total Bilirubin 0.30 (0.1-1.2) mg/dL AST 17 (5-40) units/L ALT 12 (7-56) units/L Alkaline Phosphatase 96 (35-129) units/L Troponin T < 0.010 (0.00-0.029) ng/mL Total Protein 7.5 (6.3-8.2) g/dL Albumin 4.5 (3.9-5) g/dL Albumin/Globulin Ratio 1.5 % - EKG Data -: EKG Interpreted by [facility] - EKG Data EKG shows sinus arrhythmia left atrial enlargement no ST segment elevation or T- wave inversion normal axis 04/26/18 19:05 - Radiology Data Radiology results: report reviewed, image reviewed Chest x-ray: Shows mild COPD Left hip x-ray: Shows NAOI - Medical Decision Making Chief medical diagnosis: COPD exacerbation Differential medical diagnosis: Pneumonia, electrolyte abnormality I will get CBC, BMP, EKG, albuterol breathing treatment, oral steroids urinalysis and will reevaluate patient. Spent 5 minutes for smoking cessation counseling with the e-cigarettes nicotine patch and gum Critical care attestation.: If time is entered above; I have spent that time in minutes in the direct care of this critically ill patient, excluding procedure time. ED Disposition Clinical Impression: COPD exacerbation, Shortness of breath, Anxiety, Tobacco abuse, Encounter for smoking cessation counseling Disposition: DC-01 TO HOME OR SELFCARE Is pt being admited?: No Does the pt Need Aspirin: No Condition: Stable Instructions: Chronic Bronchitis (ED) Prescriptions: hydrOXYzine HCL [Atarax] 50 mg PO Q6HR PRN #30 tablet PRN Reason: Anxiety predniSONE [Deltasone] 20 mg PO QDAY #10 tab
[2018-04-26] MEDS ORDERED: PROVENTIL IH ONE ×2 (15:57→18:05)
[2018-04-26] MEDS ORDERED: DELTASONE PO ONE (15:58)
[2018-04-26] MEDS ORDERED: SUBLIMAZE IV ONE ×2 (16:01→17:00)
[2018-04-26] MEDS ORDERED: ATROVENT IH ONE (16:06)
[2018-04-26 16:23] LABS: Basophils % (Auto) 0.5 % (0.0-1.8); Eosinophils # (Auto) 0.1 K/mm3 (0.0-0.4); Eosinophils % (Auto) 1.3 % (0.0-4.3); Hematocrit 38.8 % (30.3-42.9); Lymphocytes # (Auto) 1.2 K/mm3 (1.2-5.4); Lymphocytes % (Auto) 18.2 % (13.4-35.0); Mean Corpuscular HGB Conc 34 % (30-34); Mean Corpuscular Hemoglobin 30 pg (28-32); Mean Corpuscular Volume 89 fl (79-97); Monocytes # (Auto) 0.5 K/mm3 (0.0-0.8); Monocytes % (Auto) 7.1 % (0.0-7.3); Platelet Count 215 K/mm3 (140-440); Red Blood Count 4.37 M/mm3 (3.65-5.03); Red Cell Distribution Width 16.1 % (13.2-15.2)
[2018-04-26 16:57] LABS: Alanine Aminotransferase 12 units/L (7-56); Albumin 4.5 g/dL (3.9-5); BUN/Creatinine Ratio 13; Blood Urea Nitrogen 14 mg/dL (7-17); Calcium 9.6 mg/dL (8.4-10.2); Hemolysis Index 5
--- NOTE | 2018-04-26 17:04 | XRay Report ---
FINAL REPORT PROCEDURE: Left hip. TECHNIQUE: AP pelvis, frogleg lateral view of the left hip. HISTORY: Left hip pain. COMPARISON: No prior studies are available for comparison. FINDINGS: The bones appear intact without fracture or dislocation. The hip joint appears normal. The soft tissues are unremarkable. Internal fixation hardware is noted in the lumbosacral spine. IMPRESSION: No significant abnormality.
--- NOTE | 2018-04-26 17:06 | XRay Report ---
FINAL REPORT PROCEDURE: Chest. TECHNIQUE: Portable AP view. HISTORY: Chest pain. COMPARISON: Chest 03/09/2018. FINDINGS: The heart size is normal. There is moderate tortuosity and faint calcification in the thoracic aorta. The lungs are clear and mildly hyperinflated. There are no pleural effusions. The soft tissues are unremarkable. There is osteoarthritis involving both shoulder joints. There is a moderate thoracic scoliosis. IMPRESSION: Mild COPD. Bilateral shoulder osteoarthritis.
[2018-04-26 17:41] VITALS: BP 149/71
[2018-04-26] MEDS ORDERED: PROAIR IH ONE (18:02)
[2018-04-26] MEDS ORDERED: ATIVAN IV ONE (18:32)
[2018-04-26] MEDS ORDERED: ATIVAN ONE (18:36)
== END 2018-04-26 20:58 | disposition home or self-care (01) ==
LOC: ED 14:45
DX: J44.1 Chronic obstructive pulmonary disease with (acute) exacerbation (principal); F41.9 Anxiety disorder, unspecified; F17.210 Nicotine dependence, cigarettes, uncomplicated; I11.0 Hypertensive heart disease with heart failure; I50.9 Heart failure, unspecified; M19.90 Unspecified osteoarthritis, unspecified site; G89.29 Other chronic pain; M54.9 Dorsalgia, unspecified; Z79.82 Long term (current) use of aspirin
CPT/HCPCS: 36415; 71045; 73502; 80053; 84484; 85025; 93005; 93010; 94640; 96374; 96375; 99284; 99406; J2060; J3010; J7512